=== PATIENT | male | born 1965 | race Caucasian/White ===

== ENCOUNTER → 2020-06-01 09:22 | Outpatient (BNVA) | payer MEDICAID, SELFPAY | PROVIDERS: PCP Internal Medicine Geriatric Medicine; Referring Provider Internal Medicine Geriatric Medicine; Visit Provider Orthopaedic Surgery | DX: Z47.1 Aftercare following joint replacement surgery (principal); Z96.652 Presence of left artificial knee joint | CPT/HCPCS: 99212 ==

== ENCOUNTER → 2022-01-20 12:53 | Outpatient (BNVA) | payer MEDICAID, SELFPAY | PROVIDERS: PCP Internal Medicine Geriatric Medicine; Visit Provider Surgery | DX: K42.9 Umbilical hernia without obstruction or gangrene (principal) | CPT/HCPCS: 99202 ==

== ENCOUNTER 2022-02-08 09:48 | Day surgery (SDC) | payer MEDICAID, SELFPAY ==
[2022-02-03 10:09] VITALS: BMI 38.2
--- NOTE | 2022-02-07 09:24 | HO.ANESPROP2 ---
Documented by User: Zahraa Collins NP 02/07/22 09:25 HPI - Anesthesia Eval Consult details Narrative: 56yo M for Hernia Repair Umbilical with mesh Suboxone tx PMFSH Active Problems Active Problems: All Active Problems (Updated 02/03/22 @ 10:13 by Lynne Rivera RN) Loose left total knee arthroplasty (Acute) Umbilical hernia (Acute) History of total left knee replacement (Acute) Past Medical History Medical History Anxiety and depression Hypertension Morbid obesity Primary osteoarthritis of left knee Smoker Family History Family History Father No problems noted. Mother No problems noted. Surgical History Surgical History History of total left knee replacement Social History Social History Housing Other:: Lives in [facility] Are you a primary senior resident care director to a significant other at home: No Do you presently have visiting nurse or other home services: No Patient Tobacco Use Status: Current everyday Tobacco user Tobacco use type: Cigarette Cigarettes Per Day: 2 Smoked in Last 30 Days: Yes Have you been hit, kicked, punched, or otherwise hurt by someone within the past year? If so, by whom?: No Are you DNR?: No Advance Directives: No Advance Directives Information Provided: Yes Advance Directives on File: No Poor oral hygiene: Yes (many missing teeth) Current occupational status: unemployed Current occupation: Right Handed Meds Allergies Allergy/AdvReac Type Severity Reaction Status Date / Time No Known Allergies Allergy Verified 02/03/22 10:06 [No Known Allergies*] Home Medications Medication Instructions Recorded Confirmed Last Taken Type atorvastatin 20 mg tablet 20 mg PO DAILY 01/20/22 02/03/22 Unknown History buprenorphine 8 mg-naloxone 2 mg 8 film sublingual 01/20/22 01/20/22 02/08/22 History sublingual film (Suboxone) bupropion HCl 150 mg 24 hr tablet, 150 mg PO DAILY 01/20/22 02/03/22 Unknown History extended release clonidine HCl 0.1 mg tablet 0.1 - 0.2 mg PO BID 01/20/22 01/20/22 Unknown History doxepin 10 mg capsule 10 mg PO BEDTIME 01/20/22 01/20/22 Unknown History hydroxyzine HCl 25 mg tablet 25 mg PO TID PRN anxiety 01/20/22 02/03/22 02/08/22 History ibuprofen 800 mg tablet 800 mg PO TID 01/20/22 02/03/22 Unknown History sertraline 100 mg tablet 200 mg PO BEDTIME 01/20/22 02/03/22 Unknown History Exam Exam Date and Time: February 07, [id number] Height,Weight and Vital Signs: Height 5 ft 10 in Weight 121.109 kg Assessment and Plan Assessment Anesthesia Assessment: Chart Reviewed Documented by User: Yo Shaver MD 02/08/22 16:51 PMFSH Past Medical History Medical History Anxiety and depression Hypertension Morbid obesity Primary osteoarthritis of left knee Smoker Functional capacity: independent ambulation Family History Family History Father No problems noted. Mother No problems noted. Family history of problems with anesthesia: No Surgical History Surgical History History of total left knee replacement History of Problems with Anesthesia: No Social History Social History Housing Other:: Lives in [facility] Are you a primary senior resident care director to a significant other at home: No Do you presently have visiting nurse or other home services: No Patient Tobacco Use Status: Current everyday Tobacco user Tobacco use type: Cigarette Cigarettes Per Day: 2 Smoked in Last 30 Days: Yes Have you been hit, kicked, punched, or otherwise hurt by someone within the past year? If so, by whom?: No Are you DNR?: No Advance Directives: No Advance Directives Information Provided: Yes Advance Directives on File: No Poor oral hygiene: Yes (many missing teeth) Current occupational status: unemployed Current occupation: Right Handed Meds Allergies Allergy/AdvReac Type Severity Reaction Status Date / Time No Known Allergies Allergy Verified 02/03/22 10:06 [No Known Allergies*] Home Medications Medication Instructions Recorded Confirmed Last Taken Type atorvastatin 20 mg tablet 20 mg PO DAILY 01/20/22 02/03/22 Unknown History buprenorphine 8 mg-naloxone 2 mg 8 film sublingual 01/20/22 01/20/22 02/08/22 History sublingual film (Suboxone) bupropion HCl 150 mg 24 hr tablet, 150 mg PO DAILY 01/20/22 02/03/22 Unknown History extended release clonidine HCl 0.1 mg tablet 0.1 - 0.2 mg PO BID 01/20/22 01/20/22 Unknown History doxepin 10 mg capsule 10 mg PO BEDTIME 01/20/22 01/20/22 Unknown History hydroxyzine HCl 25 mg tablet 25 mg PO TID PRN anxiety 01/20/22 02/03/22 02/08/22 History ibuprofen 800 mg tablet 800 mg PO TID 01/20/22 02/03/22 Unknown History sertraline 100 mg tablet 200 mg PO BEDTIME 01/20/22 02/03/22 Unknown History Exam Airway Mallampati Class: IV TM Dist: >3cm Denture: Upper and Lower Loose/Missing/Broken Teeth: Yes Heart: S1,S2 Lungs: b/l breath sounds Assessment and Plan Assessment Anesthesia Assessment: Anesthesia Plan Discussed Final Anesthetic Review Family History of Problems with Anesthesia: No History of Problems with Anesthesia: No NPO: Yes ASA Class: III Final Preanesthetic Review: Meds/Allgs Chart Reviewed, Consent Obtained/Reviewed and Anes Risks/Benef Reviewed Patient Risk: High Procedure Risk: Intermediate Anesthetic Plan Anesthetic Plan: GA Disposition: Standard PACU
[2022-02-08] VITALS (10 sets, daily range): BP systolic 107–130; BP diastolic 73–98; PULSE 71–80; RESP 14–22; TEMP 36–36.6; O2SAT 92–100
[2022-02-08] MEDS: Lactated Ringers 1,000 ML 100 ML IVCONT (11:24)
--- NOTE | 2022-02-08 12:46 | MHC.SHP ---
Pre-Procedural Eval Section A Date of Service: 02/08/22 The patient is an INPATIENT: No Changes since office visit: No Cold of Flu in the past 2 weeks, No New Medical Problems, No Changes in Medication and No Patient answered all questions The History & Physical has been completed within 30 days and I have reviewed it.: Yes Section B Chief Complaint: Umbilical hernia without obstruction or gangrene Allergies: Allergies Allergy/AdvReac Type Severity Reaction Status Date / Time No Known Allergies Allergy Verified 02/03/22 10:06 [No Known Allergies*] Plan I have reviewed the history and physical and performed a pertinent physical examination on my patient. No changes have occurred unless specified.
--- NOTE | 2022-02-08 13:56 | P.OP_ITS ---
Operative Note Operative Note Date of Service: 02/08/22 Narrative: Preop diagnosis: Umbilical hernia Postop diagnosis: Umbilical hernia Procedure: Repair of umbilical hernia with Ventralex mesh Surgeon: Usman Strickland MD product safety technical assistant: MAJO Byrne The patient is a 56-year-old male with a partially reducible umbilical hernia. He wanted to proceed with repair. He understood the technique of repair with mesh. He was aware of the risks, benefits, and alternatives He was brought to the operating room and placed supine under general anesthesia via endotracheal tube. The abdomen was prepped draped in the usual sterile fashion. A surgical time-out was done. The patient received cefazolin 2 g IV preoperatively . I infiltrated the planned line of incision with lidocaine 1%. I made a supra umbilical transverse curvilinear incision using blade 15. This was carried down with electrocautery through the full-thickness of the skin subcutaneous fat. I proceeded to gently lift up the umbilicus as a flap off of the rest of the fascia. I was able to visualize the hernia which consisted of fat. I the hernia contents from the umbilicus. I continued to sharply dissect the hernia contents down to the fascial edge. I divided adhesions to the fascial edge until was able to completely reduce the entire hernia. The fascial defect was fine. This was about 1.5 cm in diameter. The underside of the fascia was clear. I used a small-sized Ventralex mesh. I positioned this flat under the fascia. I secured the Prolene straps of the mesh to the fascial edge on each side with Prolene 2 sutures. I trimmed the Prolene straps flush on the fascial level. I closed the fascia with a [id number] Maxon 1 stitch. I used a Dexon 3-0 stitch to tack the umbilicus to the fascia and re-create the dimple. I closed the skin with subcuticular running Dexon 4-0 stitch. The incision was infiltrated with Marcaine 0.5% for postop analgesia. Steri-Strips and dressings were applied. The procedure was completed. The patient tolerated procedure well. There were no complication noted. Initial and final counts of sponges and instruments were correct. Estimated blood loss was about 5 cc . The patient was extubated without difficulty and transferred to recovery room with stable vital signs.
[2022-02-08] MEDS: Albuterol Sulfate (0.083%) 2.5 MG/3 ML VIAL.NEB INHALE (15:41)
--- NOTE | 2022-02-08 18:03 | PC.NURSE ---
[id number] patient sitting in recliner eating dinner meal. no complaints. tolerated meal well. await discharge to home via taxi
== END 2022-02-08 18:04 | disposition home or self-care (01) ==
PROVIDERS: PCP Internal Medicine Geriatric Medicine; Visit Provider Surgery
PROC: (CPT 49585; principal; 2022-02-08 11:30)
DX: K42.9 Umbilical hernia without obstruction or gangrene (principal); I10 Essential (primary) hypertension; E66.01 Morbid (severe) obesity due to excess calories; F41.8 Other specified anxiety disorders; Z79.899 Other long term (current) drug therapy; Z79.1 Long term (current) use of non-steroidal anti-inflammatories (NSAID); Z96.652 Presence of left artificial knee joint; F17.210 Nicotine dependence, cigarettes, uncomplicated
CPT/HCPCS: 49585; 94640; C1781; J0690; J1100; J1170; J2250; J2405; J3010

== ENCOUNTER 2023-06-07 09:25 | Outpatient (REF) | payer MEDICAID, SELFPAY ==
[2023-06-07 11:11] LABS: MANUAL DIFF FLAG NO
[2023-06-07 11:37] LABS: Basophils Percent Auto 0.3 % (0-2); Eosinophils Absolute Auto 0.4 X10*3/uL (0.0-0.4); Eosinophils Percent Auto 4.1 % (0-4); Hematocrit 45.1 % (42.0-52.0); Hemoglobin 14.5 g/dl (14.0-18.0); Imm Gran Abs Auto 0.04 X10*3/uL (0.00-0.03); Imm Gran Pct Auto 0.4 % (0.0-0.4); Lymphocytes Percent Auto 19.7 % (20-40); Mean Corpuscular HGB Conc 32.2 g/dl (31.0-36.0); Mean Corpuscular Hemoglobin 29.5 pg (27.0-33.0); Mean Corpuscular Volume 91.7 fL (80.0-98.0); Mean Platelet Volume 11.1 fL (9.4-12.4); Monocytes Absolute Auto 0.7 X10*3/uL (0.1-1.2); Monocytes Percent Auto 7.1 % (2-11); Neutrophils Absolute Auto 6.8 x10*3/uL (2.0-8.3); Neutrophils Percent Auto 68.4 % (45-73); Platelet Count 225 X10*3/uL (160-400); Red Blood Count 4.92 X10*6/uL (4.60-5.80); Red Cell Distribution Width 11.9 % (11.0-16.0)
[2023-06-07 11:45] LABS: Anion Gap 12 (12-20); Blood Urea Nitrogen 20 mg/dL (9-16); Carbon Dioxide 31 mmol/L (22-29); Chloride 103 mmol/L (96-108); Estimated Glomerular Filt Rate > 60; Glucose Random 98 mg/dL (60-115); Potassium 4.5 mmol/L (3.3-5.1); Sodium 141 mmol/L (135-145)
== END 2023-06-07 09:26 | disposition home or self-care (01) ==
LOC: HO.HHCL 09:25
PROVIDERS: Visit Provider Internal Medicine Geriatric Medicine
DX: B18.2 Chronic viral hepatitis C (principal); F32.A Depression, unspecified; Z72.0 Tobacco use
CPT/HCPCS: 36415; 80048; 85025

== ENCOUNTER 2023-12-15 10:28 | Outpatient (REF) | payer MEDICAID, SELFPAY ==
--- NOTE | ~2023-12-15 | XR_ITS ---
EXAMINATION: XR KNEE, RIGHT CLINICAL INFORMATION: Chronic pain of right knee COMPARISON: Standing x-rays of both knees September 2019 TECHNIQUE: Four views of the right knee. FINDINGS: Small joint effusion. Bone and joints otherwise unremarkable. XR/XR knee RT 4V IMPRESSION: Small joint effusion.
== END 2023-12-15 10:29 | disposition home or self-care (01) ==
LOC: HO.HHCX 10:28
PROVIDERS: Visit Provider Internal Medicine Geriatric Medicine
DX: M25.561 Pain in right knee (principal); G89.29 Other chronic pain
CPT/HCPCS: 73564

== ENCOUNTER 2024-03-20 09:52 | Outpatient (REF) | payer MEDICAID, SELFPAY ==
[2024-03-20 11:36] LABS: MANUAL DIFF FLAG NO
[2024-03-20 11:52] LABS: Basophils Percent Auto 0.3 % (0-2); Eosinophils Absolute Auto 0.4 X10*3/uL (0.0-0.4); Hematocrit 44.6 % (42.0-52.0); Hemoglobin 14.4 g/dl (14.0-18.0); Imm Gran Abs Auto 0.03 X10*3/uL (0.00-0.03); Imm Gran Pct Auto 0.3 % (0.0-0.4); Lymphocytes Absolute Auto 2.3 X10*3/uL (1.2-4.9); Lymphocytes Percent Auto 22.5 % (20-40); Mean Corpuscular HGB Conc 32.3 g/dl (31.0-36.0); Mean Corpuscular Hemoglobin 29.3 pg (27.0-33.0); Mean Corpuscular Volume 90.7 fL (80.0-98.0); Mean Platelet Volume 10.6 fL (9.4-12.4); Monocytes Absolute Auto 0.8 X10*3/uL (0.1-1.2); Monocytes Percent Auto 7.4 % (2-11); Neutrophils Absolute Auto 6.7 x10*3/uL (2.0-8.3); Neutrophils Percent Auto 65.5 % (45-73); Platelet Count 232 X10*3/uL (160-400); Red Blood Count 4.92 X10*6/uL (4.60-5.80); Red Cell Distribution Width 11.9 % (11.0-16.0); White Blood Count 10.2 X10*3/uL (4.8-10.8)
[2024-03-20 12:02] LABS: Estimated Average Glucose 108 mg/dL; Hemoglobin A1c % 5.4 % (<6.0)
[2024-03-20 12:57] LABS: Alanine Aminotransferase 28 U/L (0-40); Albumin Level 4.5 g/dL (3.5-5.0); Alkaline Phosphatase 74 U/L (39-117); Anion Gap 12 (12-20); Aspartate Amino Transferase 35 U/L (5-37); Bilirubin Direct 0.1 mg/dL (0.0-0.5); Bilirubin Total 0.4 mg/dL (0.0-1.0); Blood Urea Nitrogen 23 mg/dL (9-16); Calcium 9.4 mg/dL (8.4-10.2); Carbon Dioxide 30 mmol/L (22-29); Chloride 101 mmol/L (96-108); Estimated Glomerular Filt Rate > 60; Glucose Random 111 mg/dL (60-115); Potassium 4.4 mmol/L (3.3-5.1); Sodium 139 mmol/L (135-145); Total Protein 8.3 g/dL (6.5-8.0)
== END 2024-03-20 09:53 | disposition home or self-care (01) ==
LOC: HO.HHCL 09:52
PROVIDERS: Family Medicine; Visit Provider Internal Medicine Geriatric Medicine
DX: Z13.1 Encounter for screening for diabetes mellitus (principal); F11.20 Opioid dependence, uncomplicated; Z79.1 Long term (current) use of non-steroidal anti-inflammatories (NSAID)
CPT/HCPCS: 36415; 80053; 80076; 82248; 83036; 85025

== ENCOUNTER 2024-04-22 09:50 | Outpatient (AMB) | payer MEDICAID, SELFPAY ==
--- NOTE | 2024-04-22 10:22 | A.OFFVIS_ITS ---
Vital Signs 04/22/24 10:32 Height 5 ft 10 in Weight 258 lb BMI 37.0 Handedness Left Intake Visit Reasons: New Pt - Right knee Pain Intake Note: Edmund is a 58 year old male who presents today as a new patient for a evaluation of his right knee pain. No hx of injury. Hx of left TKA about 5 years ago. Patient reports ongoing pain for about 6 months. He states that he might have liquid in his knee. Patient mentions that he uses a knee sleeve at night and to be around the house which gives him mild relief. Patient has tried and failed 3 + months of NSAIDs, bupropion and hydroxyzine for his knee pain. [employer]: [employer] Present (Rebecca Blackmon ([id number])) Allergies No Known Allergies [No Known Allergies*] Allergy (Verified 04/22/24 10:29) Medication List - Last Reconciled 04/22/24 by Diamond Norris PA-C atorvastatin 20 mg PO DAILY buprenorphine-naloxone 8-2 mg (Suboxone) 8 film sublingual bupropion HCl XL 300 mg PO QAM doxepin 25 mg PO BEDTIME hydroxyzine HCl 25 mg PO TID PRN ibuprofen 800 mg PO TID sertraline 200 mg PO BEDTIME HPI HPI New Pt - Right knee Pain: Details: 58-year-old male who presents to the office today for an evaluation of right knee pain for about 6 months. He has not had any knee injury. He states he has pain at the medial aspect of his knee that is aggravated with stairs use and ambulation. He also believes that he may have liquid in his knee. He uses a knee sleeve at night and when moving around the house with mild relief. He has tried 3+ months of NSAIDS, bupropion and hydroxyzine with no relief. He has a history of left TKA about 5 years ago. He does not have a history of diabetes. [facility] Medical History Anxiety and depression Hypertension Morbid obesity Primary osteoarthritis of left knee Smoker Surgical History History of total left knee replacement History of umbilical hernia repair Family History Father No problems noted. Mother No problems noted. Social History (Updated 04/22/24 @ 10:32 by Maira D Marie) Housing Other:: Lives in [facility] Are you a primary transitional care nurse to a significant other at home: No Do you presently have visiting nurse or other home services: No Alcohol intake: never Patient Tobacco Use Status: Current everyday Tobacco user Tobacco use type: Cigarette Cigarettes Per Day: 2 Current occupational status: disabled Current occupation: left hand dominant Review of Systems Const All systems reviewed & are unremarkable except as noted in HPI and below Physical Exam Vital Signs: BMI result Body Mass Index 37.0 Const General: cooperative, healthy appearing, comfortable, no acute distress, well developed and alert Orientation/consciousness: patient oriented x3 HEENT Head: Yes normal to inspection, Yes normocephalic and Yes atraumatic Eyes General: appearance normal, both eyes and all related structures Resp Effort & Inspection: normal respiratory effort and able to speak in complete sentences Cardio Rate: regular rate Peripheral pulses: Peripheral pulses 2+ throughout GI Palpation (GI): Soft to palpation Skin Lesions: no lesions Rashes: no rashes Neuro General: patient oriented x3 Extrem Other: Right knee: Skin intact, no erythema or joint effusion. Tenderness along the medial joint line. Full ROM with crepitus. Negative Chin?s. No ligamentous laxity. NVI. Office Procedures Joint Injection/Aspiration Joint Injection/Aspiration Primary Site: right knee Prep: site was prepped using aseptic technique, ethochloride spray was applied and injection warnings given Injected: 80 mg of, DepoMedrol, with 8 mL of, 1% plain lidocaine and in the joint Approach Used: anterolateral Procedure: The patient tolerated the procedure well and there was some relief with the local anesthesia Coding 17954 - Glenohumeral/Tronchanteric Bursa/Intraarticular Procedure code (CPT) selection complete Results Reviewed Results Reviewed: xrays of the right knee obtained on 12/15/23 significant for mild right knee oa Assessment & Plan Assessment & Plan (1) Osteoarthritis of right knee: Code(s): M17.11 - Unilateral primary osteoarthritis, right knee Category: Medical Plan We discussed options today, which include steroid injection. The patient did consent to move forward with the injection, which was tolerated well. I recommended rest, ice, and elevation and OTC anti-inflammatories as needed for discomfort. He was also given a course of physical therapy in the office today. If symptoms persist or worsen over the next 6-8 weeks, patient will contact the office, otherwise follow-up as needed. Orders: Orders PT Evaluation and Treatment Today M17.11 - Unilateral primary osteoarthritis, right knee Patient Instructions: Scribed for Diamond Norris PA-C, by Chico Zazueta medical surgery nurse, on 04/22/2024 at 10:45 AM EST.? I, Diamond Norris PA-C, have personally reviewed and agree with the information entered by the scribe. Coding Level of Care Code Est Pt Level 3 (86017) Complex EM visit Add On G2211 Diagnoses Osteoarthritis of right knee M17.11 CPT Codes Coding - Joint 7: 90877 - Glenohumeral/Tronchanteric Bursa/Intraarticular ([id number])
[2024-04-22 10:32] VITALS: BMI 37.0
== END 2024-04-22 11:15 | disposition home or self-care (01) ==
PROVIDERS: PCP Internal Medicine Geriatric Medicine; Visit Provider Physician Assistant
DX: M17.11 Unilateral primary osteoarthritis, right knee (principal)
CPT/HCPCS: 20610; 99213

== ENCOUNTER → 2024-04-22 09:50 | Outpatient (BNVA) | payer MEDICAID, SELFPAY | PROVIDERS: PCP Internal Medicine Geriatric Medicine; Visit Provider Physician Assistant | DX: M17.11 Unilateral primary osteoarthritis, right knee (principal); Z96.652 Presence of left artificial knee joint | CPT/HCPCS: 20610; 99212; J1010 ==

== ENCOUNTER 2024-10-09 08:38 | Outpatient (REF) | payer MEDICAID, SELFPAY ==
--- OUTSIDE RECORDS SUMMARY | 2024-10-09 09:11 | XMS_ITS | Encounter Summary ---
Author Organization [employer] Address [address] [place] [address] Care Team Providers Care Electrician'S Helper Name Role Phone Name, Gerry ANDERSON Primary Care Provider [phone] Encounter Details Date Type Department Care Team (Latest Contact Info) Description 09/25/2024 Travel Social History Tobacco Use Types Packs/Day Years Used Date Smoking Tobacco: Every Day Cigarettes Smokeless Tobacco: Never Alcohol Use Standard Drinks/Week Comments Never 0 (1 standard drink = 0.6 oz pur e alcohol) Alcohol Answer Date Recorded Frequency of Alcohol Consumption Not on file 03/20/2024 Average Number of Drinks Not on file 024 Frequency of Binge Drinking Not on file 03/01 Score 0 03/20/2024 Depression Answer Date Recorded Patient Health Questionnaire-9 Score 0 03/20/2024 Patient Health Questionnaire-9 Score 0 03/20/2024 Last PHQ-9: Questionnaire Data Not on file 0 03/20/2024 Housing Stability Answer Date Recorded What is your housing situation today? I do not have housing (Staying with others, in a hotel, in a intermediate, living outside on the street, on a beach, in a car, or in a park 03/20/[address] you li ve. Do you have problems with any of the following? None of the above 03/20/2024 Food Insecurity Answer Date Recorded Within the past 12 months, y ou worried that your food would run out before you got money to buy more: Never True 03/20/2024 Within the past 12 months,th e food you bought just didn't last and you didn't have enough money to get more: Never True Transportation Answer Date Recorded In the past 12 months, has l ack of transportation kept you from medical appts, meetings, work or from getting things needed for daily living? No 03/20/2024 Utilities Answer Date Recorded In the past 12 months, has t he electric, gas, oil or water company threatened to shut off services in your home? No 03/20/2024 Depression Answer Date Recorded Patient Health Questionnaire-2 Score 0 03/20/2024 Internet Access Answer Date Recorded Internet Access Q1 No 04/01/2024 Internet Access Q2 I do not want or need it 08/2023 Sex and Gender Information Value Date Recorded Sex Assigned at Male 05/30/2022 10:31 AM EDT Legal Sex Male 10:31 AM EDT Gender Identity Male 05/30/2022 10:31 AM EDT Sexual Orientation Straight 05/30/2022 10 :31 AM EDT documented as of this encounter Plan of Treatment Upcoming Encounters Date Type Department Care Team (Late st Contact Info) Description 10/09/2024 10:30 AM EDT Office Visit [address] [id number] Ruth Barrios MD [address] [place] [id number] 10/23/2024 9:00 AM EDT Office Visit [address] [address] Ruth Barrios MD [address] [place] [id number] 01/15/2025 11:15 AM EDT Office Visit [address] [address] Gerry Salter MD [address] [place] [id number] documented as of this encounter Goals Goal Patient Goal Type Associated Problems Recent Progress Patient-Stated? Author Maintaining remission stage from opioid use disorder General On track(09/25/19 25 9:32 AM EST) Yes Ruth Barrios MD Quit using tobacco (cigarettes, smokeless, etc) Tobacco Use No change( 025 9:34 AM EST) No Ruth Barrios MD Note: 2 cigs per day on 09/25/24 documented as of this encounter Visit Diagnoses Not on filedocumented in this encounter Additional Health Concerns Assessment Noted Time PHQ-9 Depression Total Score: 0 03/20/20 24 9:07 AM EDT documented as of this encounter Care Teams Electrician[employer] Helper Relationship Specialty Start Date End Date Name, MD [address] [place] [address] PCP - General Family Medicine 02/16/17 documented as of this encounter
--- OUTSIDE RECORDS SUMMARY | 2024-10-09 09:11 | XMS_ITS | Encounter Summary ---
Author Organization [employer] Address [address] [facility] 7t [place] [address] Care Team Providers Care Medical Record Retrieval Specialist Name Role Phone Name, Gerry ANDERSON Primary Care Provider [phone] Reason for Visit * Reason Comments OBAT RV Encounter Details Date Type Department Care Team (Latest Contact Info) Description 09/25/2024 9:15 AM EST Office Visit [facility] MEDICINE [address], [place] [phone] Ruth Barrios MD [address] [place], [place] [phone] Uncomplicated opioid dependence (CMS/HCC) (Primary Dx); Tobacco use Social History Tobacco Use Types Packs/Day Years [...] with others, in a hotel, in a senior living, living outside on the street, on a [...] the past 12 months, has t he [employer], gas, oil or water company threatened to [...] AM EDT documented as of this encounter Progress Notes * Ruth Barrios MD - 09/25/2024 9:15 AM EST Images from the original note were not included. Subjective Patient ID: Edmund Florence is a 59 y.o. male who presents for OBAT RV. HPI Patient is on current Suboxone dose of 24/6 mg (increased 01/27/24) on a 2 week schedule, 4 week Rx.Pt has been in the program for 7 years, 1 months. Induction date: 08/23/17. Patient is connected to [facility] and [facility] for behavioral health service. SATELLITE INSTALLATION TECHNICIAN reviewed by provider. Tobaccco: smoking 2 cigarettes/day 09/25/24 (5-7 cigs per day 1 year ago) LFTs: due 03/20/25 PCP: Dr. Salter, last seen 06/21/24, scheduled 10/08/24. Last visit: 09/11/24 Utox: pos bup Edmund seen today for follow up for opioid use disorder. Reports doing well overall. He is happy because a housemate who would leave the bathroom dirty has left and he feels calmer at home. [facility] would not let him seed cone picker Rx ahead of appointment, unclear why. Offered again for pt to use [facility] pharmacy, will confirm what pt wants to do next visit. Very grateful to be in recovery and for the support of [facility]. Today: 09/25/24 Utox: pos bup Edmund celebrated his birthday last week quietly. Spoke with his family. He expresses frustration with his younger sister who lives in [place], because their conversation became mostly about her when she called him for his birthday. Edmund would like to use [facility] pharmacy for buprenorphine script, starting 10/09/24. Plan: Suboxone dosing schedule of 24/6 mg daily and management of side effects reviewed. Recovery support, harm reduction (including Narcan), and behavioral health attendance reviewed. Appointment for 2 weeks given. Patient expressed understanding and agreement with continuing plan of care. This information has been disclosed to you from records protected by federal confidentiality rules (42 CFR Part 2). The federal rules prohibit you from making any further disclosure of information inthis record that identifies a patient as having or having had a substance use disorder either directly, by reference to publicly available information, or through verification of such identification by another person unless further disclosure is expressly permitted by the written consent of the individual whose information is being disclosed or as otherwise permitted by (see2.3.1). The federal rules restrict any use of the information to investigate or prosecute with regard to a crime any patient with a substance use disorder, except as provided at 2.12??(5) and 2.65. Goals Today General Maintaining remission stage from opioid use disorder (pt-stated) On track Tobacco Use Quit using tobacco (cigarettes, smokeless, etc) No change 2 cigs per day on 09/25/24 Review of Systems Constitutional: Negative for activity change, appetite change, chills, fatigue and fever. Skin: Negative for wound. Objective Physical Exam Constitutional: General: He is not in acute distress. Appearance: Normal appearance. Pulmonary: Effort: Pulmonary effort is normal. Neurological: Mental Status: He is alert. Psychiatric: Mood and Affect: Mood normal. Behavior: Behavior normal. Office Visit on 09/25/2024 Component Date Value Ref Range Status THC 09/25/2024 Negative Final Cocaine Screen, Urine 09/25/2024 Negative Final Opiate Screen, Urine 09/25/2024 Negative Final Methamphetamine Screen Urine 09/25/2024 Negative Final Amphetamine Screen, Urine 09/25/2024 Negative Final Benzodiazepines Screen, Urine 09/25/2024 Negative Final Barbiturate Screen, Urine 09/25/2024 Negative Final Methadone Screen, Urine 09/25/2024 Negative Final Buprenophine Screen, Urine 09/25/2024 Positive Final TCA, Urine 09/25/2024 Negative Final MDMA Urine 09/25/2024 Negative ng/mL Final Oxycodone Screen, Urine 09/25/2024 Negative Final Phencyclidine (PCP), Urine 09/25/2024 Negative Final Propoxyphene, Urine 09/25/2024 Negative Final Fentanyl, Urine 09/25/2024 Negative Final Assessment/Plan Problem List Items Addressed This Visit Opioid dependence ([facility]) - Primary -long-term remission stage of recovery -Recurrence after 1 year (December 2017 - January 2019) of maintenance stage due to postop (TKR on 04/02/19)pain management -OD on 04/22/20. -Detox and CSS at [facility] in Feb 2020, May 2020 -Has recovery counselor and is in residential program currently, since May 2020 -Overdose risk: intermediate. Risk factors - decreased tolerance; history of overdose (but not recent) -Co-prescription of high-risk medications: none -Discussed about the importance of harm reduction and OD prevention -Continue current recovery effort and support Relevant Orders POCT GABI-14 Urine Drug Screen (Completed) Tobacco use - making a progress towards his goal - nicotine patch and lozenge documented in this encounter Miscellaneous Notes * Significant Event - Ruth Barrios MD - 09/25/2024 9:36 AM EST Former AUD * Assessment & Plan Note - Ruth Barrios MD - 09/24/2024 9:54 PM ESTAssociated Problem(s): Tobacco use - making a progress towards his goal - nicotine patch and lozenge * Assessment & Plan Note - Ruth Barrios MD - 09/24/2024 9:53 PM ESTAssociated Problem(s): Opioid dependence (CMS/HCC) -long-term remission stage of recovery -Recurrence after 1 year (December 2017 - January 2019) of maintenance stage due to postop (TKR on 04/02/19)pain management -OD on 04/22/20. -Detox and CSS at [facility] in Feb 2020, May 2020 -Has recovery counselor and is in residential program currently, since May 2020 -Overdose risk: intermediate. Risk factors - decreased tolerance; history of overdose (but not recent) -Co-prescription of high-risk medications: none -Discussed about the importance of harm reduction and OD prevention -Continue current recovery effort and support documented in this encounter Plan of Treatment Upcoming Encounters Date Type Department Care Team (Late st Contact Info) Description 10/09/2024 10:30 AM EDT Office Visit [address] [address] Ruth Barrios MD [address] [place] [address] 10/23/2024 9:00 AM EDT Office Visit [address] [address] Ruth Barrios MD [address] [place] [address] 01/15/2025 11:15 AM EDT Office Visit [address] [address] Name, MD Gerry [address] [place] [address] documented as of this encounter Goals Goal Patient Goal Type Associated Problems Recent Progress Patient-Stated? Author Maintaining remission stage from opioid use disorder General On track(09/25/19 9:32 AM EST) Yes Ruth Barrios MD Quit using tobacco (cigarettes, smokeless, etc) Tobacco Use No change( 025 9:34 AM EST) No Ruth Barrios MD Note: 2 cigs per day on 09/25/24 documented as of this encounter Procedures Procedure Name Priority Date/Time Associated Diagnosis Comments POCT GABI-14 URINE DRUG SCREEN Routine 09/25/2024 9:21 AM EST Uncomplicated opioid dependence (CMS/HCC) documented in this encounter Results * POCT GABI-14 Urine Drug Screen (09/25/2024 9:21 AM EST) THC Negative Cocaine Screen, Urine Negative Opiate Screen, Urine Negative Methamphetamine Screen Urine Negative Amphetamine Screen, Urine Negative Benzodiazepines Screen, Urine Negative Barbiturate Screen, Urine Negative Methadone Screen, Urine Negative Buprenophine Screen, Urine Positive TCA, Urine Negative MDMA Urine Negative ng/mL Oxycodone Screen, Urine Negative Phencyclidine (PCP), Urine Negative Propoxyphene, Urine Negative Fentanyl, Urine Negative Urine Urine specimen obtained by clean catch procedure / Unknown 09/25/2024 9:21 AM EST Ruth Barrios MD POINT OF CARE TEST ENTER/EDIT OR DERABLES Final Result documented in this encounter Visit Diagnoses Diagnosis Uncomplicated opioid dependence (CMS/HCC)- Primary Tobacco use Uncomplicated opioid dependence (CMS/HCC)- Primary documented in this encounter Additional Health Concerns Assessment Noted Time PHQ-9 Depression Total Score: 0 03/20/20 9:07 AM EDT documented as of this encounter Care Teams Medical Record Retrieval Specialist Relationship Specialty Start Date End Date Name, MD Gerry [address] [place] [address] PCP - General Family Medicine 02/16/17 documented as of this encounter
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
--- OUTSIDE RECORDS SUMMARY | 2024-10-09 09:11 | XMS_ITS | Encounter Summary ---
Author Organization [employer] Address [address] [facility] 7t [place] [address] Care Team Providers Care Deputy Grand Jury Name Role Phone Name, Gerry ANDERSON Primary Care Provider [phone] Reason for Visit * Reason Onset Date Comments Med Refill 10/02/2024 Encounter Details Date Type Department Care Team ([facility] st Contact Info) Description 10/02/[address] [facility] MEDICINE [address] [place] [address] Arun Ledesma, RN [address] [place] [address] Uncomplicated opioid dependence (CMS/HCC) Social History Tobacco Use Types Packs/Day Years [...] the past 12 months, has t he [employer], gas, oil or water company threatened to [...] Description 10/09/2024 10:30 AM EDT Office Visit [address] [address] Ruth Barrios MD [address] [place] [address] 10/23/2024 9:00 AM EDT Office Visit [address] [address] Ruth Barrios MD [address] [place] [address] 01/15/2025 11:15 AM EDT Office Visit [address] [address] Name, MD Gerry [address] [place] [address] documented as of this encounter Goals Goal [...] documented as of this encounter Visit Diagnoses Diagnosis Uncomplicated opioid dependence (CMS/HCC) Uncomplicated opioid dependence (CMS/HCC)- Primary documented in this encounter Additional Health Concerns Assessment Noted Time PHQ-9 Depression Total Score: 0 03/20/20 24 9:07 AM EDT documented as of this encounter Care Teams Deputy Grand Jury Relationship Specialty Start Date End Date Name, MD Gerry [address] [place] [address] PCP - General Family Medicine 02/16/17 documented as of this encounter
--- OUTSIDE RECORDS SUMMARY | 2024-10-09 09:11 | XMS_ITS | Encounter Summary ---
Author Organization [employer] Address [address] [facility] 7t [place] [address] Care Team Providers Care Hat Forming Machine Feeder Name Role Phone Name, Gerry ANDERSON Primary Care Provider [phone] Reason for Visit * Reason Comments Follow-up Encounter Details Date Type Department Care Team ([facility] st Contact Info) Description 10/08/2024 11:30 AM EDT Office Visit [facility] MEDICINE [address] [place] [address] Name, MD Gerry [address] [place], [place] [phone] Chronic pain of left knee (Primary Dx); Encounter for monitoring chronic NSAID therapy; Depressive disorder Social History Tobacco Use Types Packs/Day Years Used Date Smoking Tobacco: Every Day Cigarettes Smokeless Tobacco: Never Tobacco Cessation:Ready to Q uit: Not Asked; Counseling Given: Not Answered Alcohol Use Standard Drinks/Week Comments Never 0 [...] with others, in a hotel, in a penitentiary, living outside on the street, on a [...] AM EDT documented as of this encounter Last Filed Vital Signs Vital Sign Reading Time Taken Comments Blood Pressure 142/97 10/08/2024 11:28 AM EDT Pulse 89 10/08/2024 11:28 AM EDT Temperature 35.7 ??C (96.2 ??F) 10/08/2024 11:28 AM E DT Respiratory Rate 18 10/08/2024 11:28 AM EDT Oxygen Saturation 96% 10/08/2024 11:28 AM EDT Inhaled Oxygen Concentration - - Weight 114 kg (252 lb 3.2 oz) 10/08/2024 11:28 A M EDT Height 177.8 cm (5' 10 ) 10/08/2024 11:28 AM EDT Body Mass Index 36.19 10/08/2024 11:28 AM EDT documented in this encounter Progress Notes * Gerry Salter, - 10/08/2024 11:30 AM EDT Subjective Patient ID: Edmund Florence is a 59 y.o. male who presents for Follow-up. Patient comes for a follow-up visit. He is doing well. He continues to live in a sober house in [place]. He is doing well on Suboxone. He is in good spirits. Chronic knee pain is well-controlled on Motrin. Patient is exercising and trying to lose weight. He denies any GI side effects to his current dose of Motrin. Today he requested refill for most of his medications including his antidepressants and antianxiety medications. He tells me he received the Pneumovax at his facility in [place]. Review of Systems Constitutional: Negative for chills, fatigue and fever. HENT: Negative for sore throat. Respiratory: Negative for cough, chest tightness and shortness of breath. Cardiovascular: Negative for chest pain, palpitations and leg swelling. Gastrointestinal: Negative for abdominal pain and blood in stool. Visit Vitals BP (!) 142/97 (BP Location: Left arm, Patient Position: Sitting, BP Cuff Size: Large adult) Pulse 89 Temp 96.2 ??F (35.7 ??C) (Temporal) Resp 18 Ht 5' 10 (1.778 m) Wt 252 lb 3.2 oz (114 kg) SpO2 96% BMI 36.19 kg/m?? Smoking Status Every Day BSA 2.37 m?? Objective Physical Exam Constitutional: Appearance: Normal appearance. Cardiovascular: Rate and Rhythm: Normal rate and regular rhythm. Heart sounds: No murmur heard. Pulmonary: Effort: Pulmonary effort is normal. No respiratory distress. Breath sounds: No wheezing, rhonchi or rales. Abdominal: Palpations: Abdomen is soft. Tenderness: There is no abdominal tenderness. Musculoskeletal: Right lower leg: No edema. Left lower leg: No edema. Neurological: Mental Status: He is alert. Assessment/Plan Diagnoses and all orders for this visit: Chronic pain of left knee Comments: I refilled his Motrin and he is asked to use it as needed with meals. Daily PPI for prevention of GI side effects Check blood work listed below Orders: - ibuprofen 800 MG tablet; TAKE 1 TABLET BY MOUTH THREE TIMES DAILY WITH FOOD Encounter for monitoring chronic NSAID therapy - CBC auto differential; Future - Comprehensive Metabolic Panel; Future Depressive disorder Comments: I refilled his antidepressants and antianxiety medications as requested Orders: - hydrOXYzine HCl (Atarax) 25 MG tablet; take 1 tablet by oral route 3 times every day as needed asneeded for anxiety - sertraline (Zoloft) 100 MG tablet; Take 2 tablets (200 mg) by mouth Once per day. - buPROPion XL (Wellbutrin XL) 300 MG 24 hr tablet; TAKE 1 TABLET BY MOUTH EVERY MORNING KRUPA 1 CADA MANANA (DEPRESION/DEJAR DE FUMAR) Other orders - omeprazole (PriLOSEC) [address] capsule; take 1 capsule by oral route every day 30 minutes to 1 hour before a meal documented in this encounter Plan of Treatment Upcoming Encounters Date Type Department Care Team (Late st Contact Info) Description 10/09/2024 10:30 AM EDT Office Visit [facility] MEDICINE [address] [place] [address] Ruth Barrios MD [address] [place] [address] 10/23/2024 9:00 AM EDT Office Visit [address] [address] Ruth Barrios MD [address] [place] [address] 01/15/2025 11:15 AM EDT Office Visit [address] [address] Geryr Salter MD [address] [place] [address] Scheduled Orders Name Type Priority Associated Diagnoses Orde r Schedule CBC auto differential Lab Routine Encounter for monitoring chronic NSAID therapy Expected: 10/08/2024 (Approximate), Expires: 10/08/2025 Comprehensive Metabolic Panel Lab Routine Encounter for monitoring chronic NSAID therapy Expected: 10/08/2024 (Approximate), Expires: 10/08/2025 documented as of this encounter Goals Goal [...] as of this encounter Visit Diagnoses Diagnosis Chronic pain of left knee- Primary Encounter for monitoring chronic NSAID therapy Depressive disorder Depressive disorder, not elsewhere classified Uncomplicated opioid dependence (CMS/[facility])- Primary documented in this encounter Additional Health Concerns Assessment Noted Time PHQ-9 Depression Total Score: 0 03/20/20 9:07 AM EDT documented as of this encounter Care Teams Hat Forming Machine Feeder Relationship Specialty Start Date End Date Name, MD Gerry [address] [place] [address] PCP - General Family Medicine 02/16/17 documented as of this encounter
--- OUTSIDE RECORDS SUMMARY | 2024-10-09 09:11 | XMS_ITS | Clinical Summary ---
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 http://education.10-[employer] Media.Toywheel/faq/GRN607 (This link is being provided for informational/ educational purposes only.) The performance of this assay has not been clinically validated in patients less than 2 years old. Blood Venous blood specimen / Unknown 11/02/2022 9:00 AM EDT 11/02/2022 9:01 AM EDT Narrative [facility] - 11/03/2022 3:29 PM EDT FASTING:YES FASTING: YES us Ruth Barrios MD LAB BLOOD ORDERABLES Final Resul t Performing Organization Address City/[facility]/ZIP Co de Phone Number FRANCISCO [address], [place] [address] [employer] [facility] [address] [place] [address] * (ABNORMAL) Lipid Panel, Standard (08/31/2022 11:38 AM EST) Cholesterol, Total 181 <200 mg/dL [employer] [facility] HDL Cholesterol 39(L) > OR = 40 mg/dL [employer] [facility] Triglycerides 108 <150 mg/dL [employer] [facility] LDL Cholesterol 120(H) mg/dL (calc) [employer] [facility] Comment: Reference range: <100 Desirable range <100 mg/dL for primary prevention; ?? <70 mg/dL for patients with CHD or diabetic patients with > or = 2 CHD risk factors. LDL-C is now calculated using the Antonino calculation, which is a validated novel method providing better accuracy than the Friedewald equation in the estimation of LDL-C. Braeden SCHAFER et al. SAPPHIRE. 2013;310(19): 1585-7254 (http://education.Olocity/faq/FSB480) Chol/HDLC Ratio 4.6 <5.0 (calc) [employer] [facility] Non-HDL Cholesterol 142(H) <130 mg/dL (calc) [employer] [facility] Comment: For patients with diabetes plus 1 major ASCVD risk factor, treating to a non-HDL-C goal of <100 mg/dL (LDL-C of <70 mg/dL) is considered a therapeutic option. Blood Venous blood specimen / Unknown 08/31/2022 11:38 AM EST 08/31/2022 11:39 AM EST Narrative [facility] - 09/01/2022 1:33 AM EST FASTING:YES FASTING: YES Gerry Salter MD LAB BLOOD ORDERABLES Final Resul t Performing Organization Address City/[facility]/ZIP Co de Phone Number FRANCISCO [address], [place] [address] [employer] [place] [facility] [address] [facility], ([address]) [place] [address] from Last 3 Months or Most Recently Relevant to Health Maintenance Insurance C3 Care Teams Nicking Machine Operator Relationship Specialty Start Date End Date Name, MD Gerry [address] [place] [id number] PCP - General Family Medicine 02/16/17
--- OUTSIDE RECORDS SUMMARY | 2024-10-09 09:11 | XMS_ITS | Encounter Summary ---
Author Organization [employer] Address [address] [place] [address] Care Team Providers Care Veneer Taping Machine Offbearer Name Role Phone Name, Gerry ANDERSON Primary Care Provider [phone] Encounter Details Date Type Department Care Team (Latest Contact Info) Description 09/11/2024 Travel Social History Tobacco Use Types Packs/Day [...] with others, in a hotel, in a longterm, living outside on the street, on a [...] Description 10/09/2024 10:30 AM EDT Office Visit [facility] [address] [place] [phone] Ruth Barrios MD [address] [place] [phone] 10/23/2024 9:00 AM EDT Office Visit [address] [address] Ruth Barrios MD [address] [place] [phone] 01/15/2025 11:15 AM EDT Office Visit [address] [address] Gerry Salter MD [address] [place] [phone] documented as of this encounter Visit Diagnoses Not on filedocumented in this encounter Additional Health Concerns Assessment Noted Time PHQ-9 Depression Total Score: 0 03/20/20 24 9:07 AM EDT documented as of this encounter Care Teams Veneer Taping Machine Offbearer Relationship Specialty Start Date End Date Gerry Salter MD [address] [place] [phone] PCP - General Family Medicine 02/16/17 documented as of this encounter
--- OUTSIDE RECORDS SUMMARY | 2024-10-09 09:14 | XMS_ITS | Encounter Summary ---
Author Organization [employer] Address [address] [facility] [address] [place] [address] Care Team Providers Care Software Configuration Manager Name Role Phone Name, Gerry ANDERSON Primary Care Provider [phone] Encounter Details Date Type Department Care Team (Late st Contact Info) Description 02/02/2024 Orders Only [facility] [address] [place], [place] [phone] Ruth Barrios MD [address] [place], [place] [phone] Social History Tobacco Use Types Packs/Day Years Used Date Smoking Tobacco: Every Day Cigarettes Smokeless Tobacco: Never Alcohol Use Standard Drinks/Week Comments Never 0 (1 standard drink = 0.6 oz pur e alcohol) Depression Answer Date Recorded Patient Health Questionnaire-9 Score 0 01/19/2023 Housing Stability Answer Date Recorded What is your housing situation today? I do not have housing (Staying with others, in a hotel, in a fpc, living outside on the street, on a beach, in a car, or in a park 05/09/[address] you li ve. Do you have problems with any of the following? None of the above 05/09/2023 Food Insecurity Answer Date Recorded Within the past 12 months, y ou worried that your food would run out before you got money to buy more: Never True 05/17/2023 Within the past 12 months,th e food you bought just didn't last and you didn't have enough money to get more: Never True Transportation Answer Date Recorded In the past 12 months, has l ack of transportation kept you from medical appts, meetings, work or from getting things needed for daily living? No 05/17/2023 Utilities Answer Date Recorded In the past 12 months, has t he electric, gas, oil or water company threatened to shut off services in your home? No 05/17/2023 Depression Answer Date Recorded Patient Health Questionnaire-2 Score 0 01/19/2023 Sex and Gender Information Value Date Recorded Sex Assigned at Male 05/30/2022 10:31 AM EDT Legal Sex Male 10:31 AM EDT Gender Identity Male 05/30/2022 10:31 AM EDT Sexual Orientation Straight 05/30/2022 10 :31 AM EDT documented as of this encounter Plan of Treatment Upcoming Encounters Date Type Department Care Team (Late st Contact Info) Description 10/09/2024 10:30 AM EDT Office Visit [facility] [address] [place] [phone] Ruth Barrios MD [address] [place] [phone] 10/23/2024 9:00 AM EDT Office Visit [address] [address] Ruth Barrios MD [address] [place] [phone] 01/15/2025 11:15 AM EDT Office Visit [address] [phone] NameGerry MD [address] [place] [phone] documented as of this encounter Visit Diagnoses Not on filedocumented in this encounter Additional Health Concerns Assessment Noted Time PHQ-9 Depression Total Score: 0 01/20/20 23 10:35 AM EDT documented as of this encounter Care Teams Software Configuration Manager Relationship Specialty Start Date End Date NameGerry MD [address] [place] [phone] PCP - General Family Medicine 02/16/17 documented as of this encounter
[2024-10-09 11:21] LABS: MANUAL DIFF FLAG NO
[2024-10-09 11:44] LABS: Basophils Percent Auto 0.2 % (0-2); Eosinophils Absolute Auto 0.3 X10*3/uL (0.0-0.4); Eosinophils Percent Auto 3.3 % (0-4); Hematocrit 43.2 % (42.0-52.0); Hemoglobin 14.3 g/dl (14.0-18.0); Imm Gran Abs Auto 0.04 X10*3/uL (0.00-0.03); Imm Gran Pct Auto 0.5 % (0.0-0.4); Lymphocytes Absolute Auto 2.6 X10*3/uL (1.2-4.9); Lymphocytes Percent Auto 29.9 % (20-40); Mean Corpuscular HGB Conc 33.1 g/dl (31.0-36.0); Mean Corpuscular Hemoglobin 28.3 pg (27.0-33.0); Mean Corpuscular Volume 85.5 fL (80.0-98.0); Mean Platelet Volume 10.6 fL (9.4-12.4); Monocytes Absolute Auto 0.6 X10*3/uL (0.1-1.2); Monocytes Percent Auto 7.2 % (2-11); Neutrophils Absolute Auto 5.1 x10*3/uL (2.0-8.3); Neutrophils Percent Auto 58.9 % (45-73); Platelet Count 264 X10*3/uL (160-400); Red Blood Count 5.05 X10*6/uL (4.60-5.80); Red Cell Distribution Width 11.9 % (11.0-16.0); White Blood Count 8.6 X10*3/uL (4.8-10.8)
== END 2024-10-09 08:39 | disposition home or self-care (01) ==
LOC: HO.HHCL 08:38
PROVIDERS: Visit Provider Internal Medicine Geriatric Medicine
DX: Z51.81 Encounter for therapeutic drug level monitoring (principal); Z79.1 Long term (current) use of non-steroidal anti-inflammatories (NSAID)
CPT/HCPCS: 36415; 85025

== ENCOUNTER 2025-01-29 08:33 | Outpatient (REF) | payer MEDICAID, SELFPAY ==
--- OUTSIDE RECORDS SUMMARY | 2025-01-29 08:37 | XMS_ITS | Clinical Summary ---
Author Organization [employer] Address [address] [place] [address] Care Team Providers Care Director Surgical Name Role Phone Name, Gerry ANDERSON Primary Care Provider [phone] Allergies No known active allergies Medications * This document contains information received from the source organization and may not represent a complete record from that organization. atorvastatin (Lipitor) 20 MG tablet 01/22/20 22 Active cloNIDine (Catapres) 0.1 MG tablet Active Diclofenac Sodium 1 % gel 12/11/19 22 Active fish oil concentrate ([place]-3) 1000 MG capsule 11/16/19 19 Active hydrocortisone 1 % cream [...] needed 168 lozenge 1 11/24/19 23 Active buPROPion XL (Wellbutrin XL) 300 MG 24 hr tabletIndicatio ns:Depressive disorder TAKE 1 TABLET BY MOUTH EVERY MORNING KRUPA 1 CADA MANANA (DEPRESION/D EJAR DE FUMAR) 30 tablet 11 01/16/20 25 Active ibuprofen 800 MG tabletIndicatio ns:Chronic pain of left knee TAKE 1 TABLET BY MOUTH THREE TIMES DAILY WITH FOOD 90 tablet 1 01/16/20 25 Active sertraline (Zoloft) 100 MG tabletIndicatio ns:Depressive disorder Take 2 tablets (200 mg) by mouth Once per day. 60 tablet 11 01/16/20 25 026 Active omeprazole (PriLOSEC) [address] capsule take 1 capsule by oral route every day 30 minutes to 1 hour before a meal 30 capsule 01/16/20 25 Active hydrOXYzine HCl (Atarax) 25 MG tabletIndicatio ns:Depressive disorder take 1 tablet by oral route 3 times every day as needed as needed for anxiety 90 tablet 01/16/20 25 Active Buprenorphine HCl-Naloxone HCl (Suboxone) 8-2 MG SL filmIndications :Uncomplicated opioid dependence (CMS/HCC) Place 1 Film under the tongue 3 times daily for 28 days. 84 Film 01/23/20 25 025 Active hydrOXYzine HCl (Atarax) 25 MG tabletIndicatio ns:Depressive disorder take 1 tablet by oral route 3 times every day as needed as needed for anxiety 90 tablet 10/09/19 025 Discontinued(Re order (will not trigger notification to Pharmacy)) sertraline (Zoloft) 100 MG tabletIndicatio ns:Depressive disorder Take 2 tablets (200 mg) by mouth Once per day. 60 tablet 10/09/19 025 Discontinued(Re order (will not trigger notification to Pharmacy)) buPROPion XL (Wellbutrin XL) 300 MG 24 hr tabletIndicatio ns:Depressive disorder TAKE 1 TABLET BY MOUTH EVERY MORNING KRUPA 1 CADA MANANA (DEPRESION/D EJAR DE FUMAR) 30 tablet 10/09/19 025 Discontinued(Re order (will not trigger notification to Pharmacy)) omeprazole (PriLOSEC) [address] capsule take 1 capsule by oral route every day 30 minutes to 1 hour before a meal 30 capsule 10/09/19 025 Discontinued(Re order (will not trigger notification to Pharmacy)) ibuprofen 800 MG tabletIndicatio ns:Chronic pain of left knee TAKE 1 TABLET BY MOUTH THREE TIMES DAILY WITH FOOD 90 tablet 12/14/19 025 Discontinued(Re order (will not trigger notification to Pharmacy)) Buprenorphine HCl-Naloxone HCl (Suboxone) 8-2 MG SL filmIndications :Uncomplicated opioid dependence (CMS/HCC) Place 1 Film under the tongue 3 times daily for 28 days. 84 Film 12/26/19 25 025 Discontinued(Re order (will not trigger notification to Pharmacy)) Active Problems Problem Noted Date Diagnosed Date Osteoarthritis of right knee 06/21/2024 Tobacco use 11/23/2022 Assessment & Plan (11/17/2024 4:20 AM EDT): - making a progress towards his goal - nicotine patch and lozenge Assessment & Plan (09/24/2024 9:54 PM EST): [...] hand Opioid dependence 08/23/2017 Assessment & Plan (12/18/2024 4:55 AM EDT): -long-term remission stage of recovery -Recurrence after 1 year (December 2017 - January 2019) of maintenance stage due to postop (TKR on 04/02/19) pain management -OD on 04/22/20. -Detox and CSS at [facility] in Feb 2020May 2020 -Has recovery counselor and is in residential program currently, since May 2020 -Overdose risk: intermediate. Risk factors - decreased tolerance; history of overdose (but not recent) -Co-prescription of high-risk medications: none -Discussed about the importance of harm reduction and OD prevention -Continue current recovery effort and support Assessment & Plan (12/04/2024 5:29 AM EDT): -long-term remission stage of recovery -Recurrence after 1 year (December 2017 - January 2019) of maintenance stage due to postop (TKR on 04/02/19) pain management -OD on 04/22/20. -Detox and CSS at [facility] in Feb 2020May 2020 -Has recovery counselor and is in residential program currently, since May 2020 -Overdose risk: intermediate. Risk factors - decreased tolerance; history of overdose (but not recent) -Co-prescription of high-risk medications: none -Discussed about the importance of harm reduction and OD prevention -Continue current recovery effort and support Assessment & Plan (11/17/2024 4:20 AM EDT): -long-term remission stage of recovery -Recurrence after 1 year (December 2017 - January 2019) of maintenance stage due to postop (TKR on 04/02/19) pain management -OD on 04/22/20. -Detox and CSS at [facility] in Feb 2020May 2020 -Has recovery counselor and is in residential program currently, since May 2020 -Overdose risk: intermediate. Risk factors - decreased tolerance; history of overdose (but not recent) -Co-prescription of high-risk medications: none -Discussed about the importance of harm reduction and OD prevention -Continue current recovery effort and support Assessment & Plan (10/22/2024 8:49 PM EDT): -long-term remission stage of recovery -Recurrence after 1 year (December 2017 - January 2019) of maintenance stage due to postop (TKR on 04/02/19) pain management -OD on 04/22/20. -Detox and CSS at [facility] in Feb 2020May 2020 -Has recovery counselor and is in residential program currently, since May 2020 -Overdose risk: intermediate. Risk factors - decreased tolerance; history of overdose (but not recent) -Co-prescription of high-risk medications: none -Discussed about the importance of harm reduction and OD prevention -Continue current recovery effort and support Assessment & Plan (10/08/2024 5:16 PM EDT): -long-term remission stage of recovery -Recurrence after 1 year (December 2017 - January 2019) of maintenance stage due to postop (TKR on 04/02/19) pain management -OD on 04/22/20. -Detox and CSS at [facility] in Feb 2020May 2020 -Has recovery counselor and is in residential program currently, since May 2020 -Overdose risk: intermediate. Risk factors - decreased tolerance; history of overdose (but not recent) -Co-prescription of high-risk medications: none -Discussed about the importance of harm reduction and OD prevention -Continue current recovery effort and support Assessment & Plan (09/24/2024 9:55 PM EST): -long-term remission stage of recovery -Recurrence after 1 year (December 2017 - January 2019) of maintenance stage due to postop (TKR on 04/02/19) pain management -OD on 04/22/20. -Detox and CSS at [facility] in Feb 2020May 2020 -Has recovery [...] -OD on 04/22/20. -Detox and CSS at [facility] in Feb 2020May 2020 -Has recovery counselor and is in residential program currently, since May 2020 -Overdose risk: intermediate. Risk factors - decreased tolerance; history of overdose (but not recent) -Co-prescription of high-risk medications: none -Discussed about the importance of harm reduction and OD prevention -Continue Vocfnypk94/4 mg daily Assessment & Plan (08/14/2024 5:18 AM EST): -long-term remission stage of recovery -Recurrence after 1 year (December 2017 - January 2019) of maintenance stage due to postop (TKR on 04/02/19) pain management -OD on 04/22/20. -Detox and CSS at [facility] in Feb 2020May 2020 -Has recovery counselor and is in residential program currently, since May 2020 -Overdose risk: Average. -Co-prescription of high-risk medications: none -Discussed about the importance of harm reduction and OD prevention -Continue Hmoshreu56/4 mg daily Assessment & Plan (07/17/2024 5:55 AM EST): -long-term remission stage of recovery -Recurrence after 1 year (December 2017 - January 2019) of maintenance stage due to postop (TKR on 04/02/19) pain management -OD on 04/22/20. -Detox and CSS at [facility] in Feb 2020May 2020 -Has recovery counselor and is in residential program currently, since May 2020 -Overdose risk: Average. -Co-prescription of high-risk medications: none -Discussed about the importance of harm reduction and OD prevention -Continue Jofuaeya52/4 mg daily Assessment & Plan (07/03/2024 10:33 AM EST): -long-term remission stage of recovery -Recurrence after 1 year (December 2017 - January 2019) of maintenance stage due to postop (TKR on 04/02/19) pain management -OD on 04/22/20. -Detox and CSS at [facility] in Feb 2020May 2020 -Has recovery counselor and is in residential program currently, since May 2020 -Overdose risk: Average. -Co-prescription of high-risk medications: none -Discussed about the importance of harm reduction and OD prevention -Continue Owqvcptl81/4 mg daily Assessment & Plan (05/07/2024 10:17 PM EDT): -long-term remission stage of recovery -Recurrence after 1 year (December 2017 - January 2019) of maintenance stage due to postop (TKR on 04/02/19) pain management -OD on 04/22/20. -Detox and CSS at [facility] in Feb 2020May 2020 -Has recovery counselor and is in residential program currently, since May 2020 -Overdose risk: Average. -Co-prescription of high-risk medications: none -Discussed about the importance of harm reduction and OD prevention -Continue Twzbvhyb77/4 mg daily Assessment & Plan (01/03/2024 5:00 AM EDT): -long-term remission stage of recovery -Recurrence after 1 year (December 2017 - January 2019) of maintenance stage due to postop (TKR on 04/02/19) pain management -OD on 04/22/20. -Detox and CSS at [facility] in Feb 2020May 2020 -Has recovery counselor and is in residential program currently, since May 2020 -Overdose risk: Average. -Co-prescription of high-risk medications: none -Discussed about the importance of harm reduction and OD prevention -Continue Vjxmwzpu26/4 mg daily Assessment & Plan (12/20/2023 5:20 AM EDT): -long-term remission stage of recovery -Recurrence after 1 year (December 2017 - January 2019) of maintenance stage due to postop (TKR on 04/02/19) pain management -OD on 04/22/20. -Detox and CSS at [facility] in Feb 2020May 2020 -Has recovery counselor and is in residential program currently, since May 2020 -Overdose risk: Average. -Co-prescription of high-risk medications: none -Discussed about the importance of harm reduction and OD prevention -Continue Inoyvgbm88/4 mg daily Assessment & Plan (12/06/2023 10:25 AM EDT): -long-term remission stage of recovery -Recurrence after 1 year (December 2017 - January 2019) of maintenance stage due to postop (TKR on 04/02/19) pain management -OD on 04/22/20. -Detox and CSS at [facility] in Feb 2020May 2020 -Has recovery counselor and is in residential program currently, since May 2020 -Overdose risk: Average. -Co-prescription of high-risk medications: none -Discussed about the importance of harm reduction and OD prevention -Continue Qlpvavjs11/4 mg daily Assessment & Plan (11/21/2023 11:06 PM EDT): -long-term remission stage of recovery -Recurrence after 1 year (December 2017 - January 2019) of maintenance stage due to postop (TKR on 04/02/19) pain management -OD on 04/22/20. -Detox and CSS at [facility] in Feb 2020May 2020 -Has recovery counselor and is in residential program currently, since May 2020 -Overdose risk: Average. -Co-prescription of high-risk medications: none -Discussed about the importance of harm reduction and OD prevention -Continue Pzlaehcu35/4 mg daily Assessment & Plan (11/08/2023 5:23 AM EDT): -long-term remission stage of recovery -Recurrence after 1 year (December 2017 - January 2019) of maintenance stage due to postop (TKR on 04/02/19) pain management -OD on 04/22/20. -Detox and CSS at [facility] in Feb 2020May 2020 -Has recovery counselor and is in residential program currently, since May 2020 -Overdose risk: Average. -Co-prescription of high-risk medications: none -Discussed about the importance of harm reduction and OD prevention -Continue Qfllftwp95/4 mg daily Assessment & Plan (10/25/2023 5:11 AM EDT): -long-term remission stage of recovery -Recurrence after 1 year (December 2017 - January 2019) of maintenance stage due to postop (TKR on 04/02/19) pain management -OD on 04/22/20. -Detox and CSS at [facility] in Feb 2020May 2020 -Has recovery counselor and is in residential program currently, since May 2020 -Overdose risk: Average. -Co-prescription of high-risk medications: none -Discussed about the importance of harm reduction and OD prevention -Continue Ncfzpddg72/4 mg daily Assessment & Plan (10/11/2023 10:04 AM EDT): -long-term remission stage of recovery -Recurrence after 1 year (December 2017 - January 2019) of maintenance stage due to postop (TKR on 04/02/19) pain management -OD on 04/22/20. -Detox and CSS at [facility] in Feb 2020May 2020 -Has recovery counselor and is in residential program currently, since May 2020 -Overdose risk: Average. -Discussed about the importance of harm reduction and OD prevention -Continue Sxjtjogk60/4 mg daily Assessment & Plan (09/12/2023 5:04 PM EST): -long-term remission stage of recovery -Recurrence after 1 year (December 2017 - January 2019) of maintenance stage due to postop (TKR on 04/02/19) pain management -OD on 04/22/20. -Detox and CSS at [facility] in Feb 2020May 2020 -Has recovery counselor and is in residential program currently, since May 2020 -Overdose risk: Average. -Discussed about the importance of harm reduction and OD prevention -Continue Kakvudep53/4 mg daily Assessment & Plan (07/18/2023 10:50 PM EST): -long-term remission stage of recovery -Recurrence after 1 year (December 2017 - January 2019) of maintenance stage due to postop (TKR on 04/02/19) pain management -OD on 04/22/20. -Detox and CSS at [facility] in Feb 2020May 2020 -Has recovery counselor and is in residential program currently, since May 2020 -Overdose risk: Average. -Discussed about the importance of harm reduction and OD prevention -Continue Bmrmfjix56/4 mg daily Assessment & Plan (06/07/2023 5:32 AM EST): -long-term remission stage of recovery -Recurrence after 1 year (December 2017 - January 2019) of maintenance stage due to postop (TKR on 04/02/19) pain management -OD on 04/22/20. -Detox and CSS at [facility] in Feb 2020May 2020 -Has recovery counselor and is in residential program currently, since May 2020 -Overdose risk: Average. -Discussed about the importance of harm reduction and OD prevention -Continue Kkugscrt35/4 mg daily Assessment & Plan (05/09/2023 10:19 PM EDT): -long-term remission stage of recovery -Recurrence after 1 year (December 2017 - January 2019) of maintenance stage due to postop (TKR on 04/02/19) pain management -OD on 04/22/20. -Detox and CSS at [facility] in Feb 2020May 2020 -Has recovery counselor and is in residential program currently, since May 2020 -Overdose risk: Average. -Discussed about the importance of harm reduction and OD prevention -Continue Unqwqbkq76/4 mg daily Assessment & Plan (11/23/2022 9:48 AM EDT): -long-term remission stage of recovery -Recurrence after 1 year (December 2017 - January 2019) of maintenance stage due to postop (TKR on 04/02/19) pain management -OD on 04/22/20. -Detox and CSS at [facility] in Feb 2020May 2020 -Has recovery counselor and is in residential program currently, since May 2020 -Discussed about the importance of harm reduction and OD prevention (Carry Narcan) -Continue Hkzjaypw65/4 mg daily Assessment & Plan (11/09/2022 10:59 AM EDT): -long-term remission stage of recovery -Recurrence after 1 year (December 2017 - January 2019) of maintenance stage due to postop (TKR on 04/02/19) pain management -OD on 04/22/20. -Detox and CSS at [facility] in Feb 2020May 2020 -Has recovery counselor and is in residential program currently, since May 2020 -Discussed about the importance of harm reduction and OD prevention (Carry Narcan) -Continue Afcrgsep08/4 mg daily Assessment & Plan (10/26/2022 4:05 PM EDT): -long-term remission stage of recovery -Recurrence after 1 year (December 2017 - January 2019) of maintenance stage due to postop (TKR on 04/02/19) pain management -OD on 04/22/20. -Detox and CSS at [facility] in Feb 2020May 2020 -Has recovery counselor and is in residential program currently, since May 2020 -Discussed about the importance of harm reduction and OD prevention (Carry Narcan) -Continue Zoojukrr15/4 mg daily Assessment & Plan (09/14/2022 9:53 AM EST): -long-term remission stage of recovery -Recurrence after 1 year (December 2017 - January 2019) of maintenance stage due to postop (TKR on 04/02/19) pain management -OD on 04/22/20. -Detox and CSS at [facility] in Feb 2020May 2020 -Has recovery counselor and is in residential program currently, since May 2020 -Discussed about the importance of harm reduction and OD prevention (Carry Narcan) -Continue Awgavhcz59/4 mg daily Assessment & Plan (08/31/2022 10:11 AM EST): -long-term remission stage of recovery -Recurrence after 1 year (December 2017 - January 2019) of maintenance stage due to postop (TKR on 04/02/19) pain management -OD on 04/22/20. -Detox and CSS at [facility] in Feb 2020May 2020 -Has recovery counselor and is in residential program currently, since May 2020 -Discussed about the importance of harm reduction and OD prevention (Carry Narcan) -Continue Jskysjto11/4 mg daily Assessment & Plan (07/20/2022 5:13 AM EST): -long-term remission stage of recovery -Recurrence after 1 year (December 2017 - January 2019) of maintenance stage due to postop (TKR on 04/02/19) pain management -OD on 04/22/20. -Detox and CSS at [facility] in Feb 2020May 2020 -Has recovery counselor and is in residential program currently, since May 2020 -Discussed about the importance of harm reduction and OD prevention (Carry Narcan) -Continue Dppqygyg72/4 mg daily Depressive disorder 06/26/2017 Polyp of [...] Encounters Date Type Department Care Team Description 01/22/2025 Refill [facility] [address] [place] [address] [phone] Jennifer Puente RN Uncomplicated opioid dependence (CMS/HCC) 01/15/2025 11:15 AM EDT Office Visit [facility] [address] [place] [address] [phone] Gerry Salter MD Chronic pain of left knee (Primary Dx); Depressive disorder; Screening for diabetes mellitus 01/15/2025 10:00 AM EDT Clinical Support [facility] [address] [place] [address] [phone] Arun Ledesma RN Uncomplicated opioid dependence (CMS/HCC) (Primary Dx) 01/15/2025 Travel 01/14/2025 Telephone [facility] [address] [place] [address] [phone] Gerry Salter MD Chart Prep 01/08/2025 Refill [facility] [address] [place] [address] [phone] Arun Ledesma RN Uncomplicated opioid dependence (CMS/HCC) 01/01/2025 10:15 AM EDT Clinical Support [address] [id number] Arun Ledesma RN Uncomplicated opioid dependence (CMS/HCC) (Primary Dx) 01/01/2025 Travel 12/25/2024 Refill [facility] [address] [place] [address] [phone] Amadou Lim RN Uncomplicated opioid dependence (CMS/HCC) 12/18/2024 9:45 AM EDT Office Visit [facility] [address] [place] [address] [phone] Ruth Barrios MD Uncomplicated opioid dependence (CMS/HCC) (Primary Dx) 12/18/2024 Travel 12/13/2024 Refill [facility] [address] [place] [address] [phone] Gerry Salter MD Chronic pain of left knee 12/04/2024 9:45 AM EDT Office Visit [facility] [address] [place] [address] [phone] Ruth Barrios MD Uncomplicated opioid dependence (CMS/HCC) (Primary Dx) 12/04/2024 Travel 11/27/2024 Refill [facility] [address] [place] [address] [phone] Arun Ledesma RN Uncomplicated opioid dependence (CMS/HCC) 11/20/2024 9:15 AM EDT Office Visit [facility] [address] [place] [address] [phone] Ruth Barrios MD Uncomplicated opioid dependence (CMS/HCC) (Primary Dx); Tobacco use 11/20/2024 Travel 11/15/2024 Telephone [facility] [address] [place] [address] [phone] Arun Ledesma RN PT-1 11/06/2024 10:45 AM EDT Clinical Support [address] [phone] Arun Ledesma RN Uncomplicated opioid dependence (CMS/HCC) (Primary Dx) 11/06/2024 Travel 10/30/2024 Refill [facility] [address] [place] [address] [phone] Arun Ledesma RN Uncomplicated opioid dependence ([facility]/HCC) from Last 3 Months Immunizations Immunization Administration Dates Next Due Hep A, Adult [...] with others, in a hotel, in a fdc, living outside on the street, on a [...] Sign Reading Time Taken Comments Blood Pressure 142/92 01/15/2025 11:23 AM EDT Pulse 84 01/15/2025 11:23 AM EDT Temperature 36.7 C (98 F) 01/15/2025 11:23 AM EDT Respiratory Rate 18 01/15/2025 11:23 AM EDT Oxygen Saturation 98% 01/15/2025 11:23 AM EDT Inhaled Oxygen Concentration - - Weight 115 kg (253 lb 9.6 oz) 01/15/2025 11:23 A M EDT Height 177.8 cm (5' 10 ) 01/15/2025 11:23 AM EDT Body Mass Index 36.39 01/15/2025 11:23 AM EDT Plan of Treatment Upcoming Encounters Date Type Department Care Team (Late st Contact Info) Description 01/29/2025 9:45 AM EDT Clinical Support [facility] [address] [place] [address] [phone] Laurel Mix, RN [address] [place] [address] [phone] 02/12/2025 10:15 AM EDT Clinical Support [facility] [address] [place] [address] [phone] Arun Ledesma, NIRALI [address] [place] [phone] 04/28/2025 11:00 AM EDT Office Visit [facility] [address] [place] [address] [phone] Name, MD Gerry [address] [place] [address] [phone] Health Maintenance Due Date Last Done Comments CT Colonography 1965 Colonoscopy 1965 Colorectal Cancer Screening 1965 FIT DNA/Cologuard 1965 FIT 1965 FOBT 1965 Sigmoidoscopy 1965 Disability Screening 1965 Zoster Vaccines (1 of 2) 2015 Pneumococcal Vaccine: 50+ Years (2 of 2 - PCV) 06/26/2018 06/26/2017 COVID-19 Vaccine ( - season) 2024 09/01/2021, 09/08/2020, 08/15/2020 Depression Screening 03/20/2025 03/20/2024, 03/20/20 24 SDOH Screening 03/20/2025 03/20/2024 Influenza Vaccine (Season Ended) 2025 04/28/2022, 05/20/2020, 04/24/2019, Additional history exists Alcohol/Substance Use Screening 06/21/2025 06/21/2024 Tobacco Screening 01/15/2026 01/15/2025 DTaP/Tdap/Td Vaccines (2 - Td or Tdap) [...] patient's age to complete this topic Meningococcal B Vaccine Aged Out No l onger eligible based on patient's age to complete [...] stage from opioid use disorder General On track(01/16/20 10:22 AM EDT) Yes Ruth aBrrios MD Quit using tobacco (cigarettes, smokeless, etc) Tobacco Use Worsening(12/29 10:22 AM EDT) No Ruth Barrios MD Note: 1.5 cigs per day on 10/23/24 1 cig day on 01/01/25 Procedures Procedure Name Priority Date/Time Associated Diagnosis Comments POCT GABI-14 URINE DRUG SCREEN Routine 01/15/2025 10:24 AM EDT Uncomplicated opioid dependence (CMS/HCC) POCT GABI-14 URINE DRUG SCREEN Routine 01/01/2025 8:56 AM EDT Uncomplicated opioid dependence (CMS/HCC) POCT GABI-14 URINE DRUG SCREEN Routine 12/18/2024 9:21 AM EDT Uncomplicated opioid dependence (CMS/HCC) POCT GABI-14 URINE DRUG SCREEN Routine 12/04/2024 9:18 AM EDT Uncomplicated opioid dependence (CMS/HCC) POCT GABI-14 URINE DRUG SCREEN Routine 11/20/2024 9:02 AM EDT Uncomplicated opioid dependence (CMS/HCC) POCT GABI-14 URINE DRUG SCREEN Routine 11/06/2024 9:15 AM EDT Uncomplicated opioid dependence (CMS/HCC) HIV 1/2 ANTIGEN/ANTIBODY, FOURTH GENERATION W/RFL Routine 11/02/2022 9:00 AM EDT Uncomplicated opioid dependence (CMS/HCC) Routine screening for STI (sexually transmitted infection) LIPID PANEL, STANDARD Routine 08/31/2022 11:38 AM EST Screening for cholesterol level from Last 3 Months or Most Recently Relevant to Health Maintenance Results * POCT GABI-14 Urine Drug Screen (01/15/2025 10:24 AM EDT) Only the most recent of6 resultswithin the time period is included. THC Negative Cocaine Screen, Urine Negative Opiate Screen, Urine Negative Methamphetamine Screen Urine Negative Amphetamine Screen, Urine Negative Benzodiazepines Screen, Urine Negative Barbiturate Screen, Urine Negative Methadone Screen, Urine Negative Buprenophine Screen, Urine Positive TCA, Urine Negative MDMA Urine Negative ng/mL Oxycodone Screen, Urine Negative Phencyclidine (PCP), Urine Negative Fentanyl, Urine Negative Urine Urine specimen obtained by clean catch procedure / Unknown 01/15/2025 10:24 AM EDT Ruth Barrios MD POINT OF CARE TEST ENTER/EDIT OR DERABLES Final Result * HIV-1/2 Antigen and Antibodies, Fourth Generation, with Reflexes (11/02/2022 9:00 AM EDT) Pathologist [facility] HIV Antigen/Antibody, 4th Generation NON-REAC TIVE NON-REAC TIVE [facility] Comment: HIV-1 antigen and HIV-1/HIV-2 antibodies were not detected. There is no laboratory evidence of HIV infection. PLEASE NOTE: This information has been disclosed to you from records whose confidentiality may be protected by state law. If your state requires such protection, then the state law prohibits you from making any further disclosure of the information without the specific written consent of the person to whom it pertains, or as otherwise permitted by law. A general authorization for the release of medical or other information is NOT sufficient for this purpose. For additional information please refer to http://education.[employer]/faq/CGC187 (This link is being provided for informational/ educational purposes only.) The performance of this assay has not been clinically validated in patients less than 2 years old. Blood Venous blood specimen / Unknown 11/02/2022 9:00 AM EDT 11/02/2022 9:01 AM EDT Narrative [facility] - 11/03/2022 3:29 PM EDT FASTING:YES FASTING: YES Ruth Barrios MD LAB BLOOD ORDERABLES Final Resul t [facility] [address], [place] [address] [facility] [address] [place] [address] * (ABNORMAL) Lipid Panel, Standard (08/31/2022 11:38 AM EST) Cholesterol, Total 181 <200 mg/dL [facility] HDL Cholesterol 39(L) > OR = 40 mg/dL [facility] Triglycerides 108 <150 mg/dL [facility] LDL Cholesterol 120(H) mg/dL (calc) [facility] Comment: Reference range: <100 Desirable range <100 mg/dL for primary prevention; <70 mg/dL for patients with CHD or diabetic patients with > or = 2 CHD risk factors. LDL-C is now calculated using the Antonino calculation, which is a validated novel method providing better accuracy than the Friedewald equation in the estimation of LDL-C. Braeden SS et al. SAPPHIRE. 2013;310(19): 5814-3198 (http://education.[employer]/faq/HQU313) Chol/HDLC Ratio 4.6 <5.0 (calc) [facility] Non-HDL Cholesterol 142(H) <130 mg/dL (calc) [facility] Comment: For patients with diabetes plus 1 major ASCVD risk factor, treating to a non-HDL-C goal of <100 mg/dL (LDL-C of <70 mg/dL) is considered a therapeutic option. Blood Venous blood specimen / Unknown 08/31/2022 11:38 AM EST 08/31/2022 11:39 AM EST Narrative [facility] - 09/01/2022 1:33 AM EST FASTING:YES FASTING: YES us Gerry Salter MD LAB BLOOD ORDERABLES Final Resul t [facility] [address] [facility] [place] [address] [facility] [address] [facility], ([address]) [place] [address] from Last 3 Months or Most Recently Relevant to Health Maintenance Insurance C3 Care Teams Director Surgical Relationship Specialty Start Date End Date Name, MD Gerry [address] [place] [id number] PCP - General Family Medicine 02/16/17
[2025-01-29 11:29] LABS: Hemoglobin A1C 136.1992 umol/L; Total Hemoglobin (HGBA1C) 3733.0661 umol/L
[2025-01-29 12:39] LABS: Alanine Aminotransferase 33 U/L (0-40); Albumin Level 5.0 g/dL (3.5-5.0); Alkaline Phosphatase 75 U/L (39-117); Anion Gap 11 (12-20); Aspartate Amino Transferase 43 U/L (5-37); Blood Urea Nitrogen 22 mg/dL (9-16); Calcium 9.0 mg/dL (8.4-10.2); Carbon Dioxide 32 mmol/L (22-29); Chloride 99 mmol/L (96-108); Estimated Glomerular Filt Rate 60; Potassium 4.1 mmol/L (3.3-5.1); Sodium 138 mmol/L (135-145); Total Protein 8.7 g/dL (6.5-8.0)
== END 2025-01-29 08:34 | disposition home or self-care (01) ==
LOC: HO.HHCL 08:33
PROVIDERS: PCP Internal Medicine Geriatric Medicine; Visit Provider Internal Medicine Geriatric Medicine
DX: Z13.1 Encounter for screening for diabetes mellitus (principal)
CPT/HCPCS: 36415; 80053; 83036

== ENCOUNTER 2025-05-07 08:50 | Outpatient (REF) | payer MEDICAID, SELFPAY ==
[2025-05-07 11:59] LABS: Alanine Aminotransferase 37 U/L (0-40); Albumin Level 4.8 g/dL (3.5-5.0); Alkaline Phosphatase 72 U/L (39-117); Anion Gap 10 (12-20); Aspartate Amino Transferase 53 U/L (5-37); Blood Urea Nitrogen 19 mg/dL (9-16); Calcium 9.3 mg/dL (8.4-10.2); Carbon Dioxide 31 mmol/L (22-29); Chloride 104 mmol/L (96-108); Estimated Glomerular Filt Rate > 60; Potassium 4.4 mmol/L (3.3-5.1); Sodium 141 mmol/L (135-145); Total Protein 8.2 g/dL (6.5-8.0)
== END 2025-05-07 08:51 | disposition home or self-care (01) ==
LOC: HO.HHCL 08:50
PROVIDERS: PCP Internal Medicine Geriatric Medicine; Visit Provider Internal Medicine Geriatric Medicine
DX: Z51.81 Encounter for therapeutic drug level monitoring (principal); Z79.1 Long term (current) use of non-steroidal anti-inflammatories (NSAID)
CPT/HCPCS: 36415; 80053

== ENCOUNTER 2025-06-04 08:16 | Outpatient (REF) | payer MEDICAID, SELFPAY ==
--- OUTSIDE RECORDS SUMMARY | 2025-06-04 08:23 | XMS_ITS | Clinical Summary ---
Author Organization [employer] Address [address] [place] [address] [address] [place] [address] Care Team Providers Care Health Information Clerk Name Role Phone Name, Gerry ANDERSON Primary Care Provider [phone] Allergies No known active allergies Medications * This document contains information received from the source organization and may not represent a complete record from that organization. atorvastatin (Lipitor) 20 MG tablet 01/22/20 22 Active cloNIDine (Catapres) 0.1 MG tablet Active Diclofenac Sodium 1 % gel 12/11/19 22 Active fish oil concentrate (Rayland-3) 1000 MG capsule 11/16/19 19 Active hydrocortisone [...] needed 168 lozenge 1 11/24/19 23 Active ibuprofen 800 MG tabletIndicatio ns:Chronic pain of left knee TAKE 1 TABLET BY MOUTH THREE TIMES DAILY WITH FOOD 90 tablet 1 01/16/20 25 Active hydrOXYzine HCl (Atarax) 25 MG tabletIndicatio ns:Depressive disorder take 1 tablet by oral route 3 times every day as needed as needed for anxiety 90 tablet 11 01/16/20 25 Active buPROPion XL (Wellbutrin XL) 300 MG 24 hr tabletIndicatio ns:Depressive disorder TAKE 1 TABLET BY MOUTH EVERY MORNING KRUPA 1 CADA MANANA (DEPRESION/D EJAR DE FUMAR) 30 tablet 11 04/28/20 25 Active sertraline (Zoloft) 100 MG tabletIndicatio ns:Depressive disorder Take 2 tablets (200 mg) by mouth Once per day. 60 tablet 04/28/20 25 026 Active omeprazole (PriLOSEC) [address] capsule take 1 capsule by oral route every day 30 minutes to 1 hour before a meal 30 capsule 04/28/20 25 Active Buprenorphine HCl-Naloxone HCl (Suboxone) 8-2 MG SL filmIndications :Uncomplicated opioid dependence (CMS/HCC) ([facility]) Place 1 Film under the tongue 3 times daily for 28 days. 84 Film 05/14/20 25 025 Active Buprenorphine HCl-Naloxone HCl (Suboxone) 8-2 MG SL filmIndications :Uncomplicated opioid dependence (CMS/HCC) ([facility]) Place 1 Film under the tongue 3 times daily for 28 days. 84 Film 04/16/20 25 025 Discontinued(Re order (will not trigger [...] Partial thickness burn of back of hand 2 Opioid dependence 08/23/2017 Assessment & Plan (05/21/2025 6:03 AM EDT): -long-term remission stage of recovery -Recurrence after 1 year (December 2017 - January 2019) of maintenance stage due to postop (TKR on 04/02/19) pain management -OD on 04/22/20. -Detox and CSS at [facility] in Feb 2020May 2020 -Has recovery counselor and is in residential program currently, since May 2020 -Overdose risk: low-intermediate. Risk factors - decreased tolerance; history of overdose (but not recent) -Co-prescription of high-risk medications: none -Discussed about the importance of harm reduction and OD prevention -Continue current recovery effort and support Assessment & Plan (05/06/2025 5:33 PM EDT): -long-term remission stage of recovery -Recurrence after 1 year (December 2017 - January 2019) of maintenance stage due to postop (TKR on 04/02/19) pain management -OD on 04/22/20. -Detox and CSS at [facility] in Feb 2020May 2020 -Has recovery counselor and is in residential program currently, since May 2020 -Overdose risk: low-intermediate. Risk factors - decreased tolerance; history of overdose (but not recent) -Co-prescription of high-risk medications: none -Discussed about the importance of harm reduction and OD prevention -Continue current recovery effort and support Assessment & Plan (04/23/2025 3:48 AM EDT): -long-term remission stage of recovery -Recurrence after 1 year (December 2017 - January 2019) of maintenance stage due to postop (TKR on 04/02/19) pain management -OD on 04/22/20. -Detox and CSS at [facility] in Feb 2020May 2020 -Has recovery counselor and is in residential program currently, since May 2020 -Overdose risk: low-intermediate. Risk factors - decreased tolerance; history of overdose (but not recent) -Co-prescription of high-risk medications: none -Discussed about the importance of harm reduction and OD prevention -Continue current recovery effort and support Assessment & Plan (04/09/2025 5:03 AM EDT): -long-term remission stage of recovery -Recurrence after 1 year (December 2017 - January 2019) of maintenance stage due to postop (TKR on 04/02/19) pain management -OD on 04/22/20. -Detox and [facility] at [facility] in Feb 2020May 2020 -Has recovery counselor and is in residential program currently, since May 2020 -Overdose risk: low-intermediate. Risk factors - decreased tolerance; history of overdose (but not recent) -Co-prescription of high-risk medications: none -Discussed about the importance of harm reduction and OD prevention -Continue current recovery effort and support Assessment & Plan (03/26/2025 5:52 AM EDT): -long-term remission stage of recovery -Recurrence after 1 year (December 2017 - January 2019) of maintenance stage due to postop (TKR on 04/02/19) pain management -OD on 04/22/20. -Detox and CSS at [facility] in Feb 2020May 2020 -Has recovery counselor and is in residential program currently, since May 2020 -Overdose risk: low-intermediate. Risk factors - decreased tolerance; history of overdose (but not recent) -Co-prescription of high-risk medications: none -Discussed about the importance of harm reduction and OD prevention -Continue current recovery effort and support Assessment & Plan (03/12/2025 9:35 AM EDT): -long-term remission stage of recovery -Recurrence after 1 year (December 2017 - January 2019) of maintenance stage due to postop (TKR on 04/02/19) pain management -OD on 04/22/20. -Detox and CSS at [facility] in Feb 2020May 2020 -Has recovery counselor and is in residential program currently, since May 2020 -Overdose risk: low-intermediate. Risk factors - decreased tolerance; history of overdose (but not recent) -Co-prescription of high-risk medications: none -Discussed about the importance of harm reduction and OD prevention -Continue current recovery effort and support Assessment & Plan (12/18/2024 4:55 AM EDT): -long-term remission stage of recovery -Recurrence after 1 year (December 2017 - January 2019) of maintenance stage due to postop (TKR on 04/02/19) pain management -OD on 04/22/20. -Detox and CSS at [facility] in Feb 2020May 2020 -Has recovery counselor [...] -OD on 04/22/20. -Detox and CSS at [facility] in Feb 2020May 2020 -Has recovery counselor [...] -OD on 04/22/20. -Detox and CSS at [facility] in Feb 2020May 2020 -Has recovery counselor [...] -OD on 04/22/20. -Detox and CSS at [facility] in Feb 2020May 2020 -Has recovery counselor [...] -OD on 04/22/20. -Detox and CSS at [facility] in Feb 2020May 2020 -Has recovery counselor [...] -OD on 04/22/20. -Detox and CSS at [facility] in Feb 2020May 2020 -Has recovery counselor [...] -OD on 04/22/20. -Detox and CSS at [facility] in Feb 2020May 2020 -Has recovery counselor and is in residential program currently, since May 2020 -Overdose risk: intermediate. Risk factors - decreased tolerance; history of overdose (but not recent) -Co-prescription of high-risk medications: none -Discussed about the importance of harm reduction and OD prevention -Continue Tafhymrq20/4 mg daily Assessment & Plan (08/14/2024 5:18 AM EST): -long-term remission stage of recovery -Recurrence after 1 year (December 2017 - January 2019) of maintenance stage due to postop (TKR on 04/02/19) pain management -OD on 04/22/20. -Detox and CSS at [facility] in Feb 2020May 2020 -Has recovery counselor and is in residential program currently, since May 2020 -Overdose risk: Average. -Co-prescription of high-risk medications: none -Discussed about the importance of harm reduction and OD prevention -Continue Ycypwena04/4 mg daily Assessment & Plan (07/17/2024 5:55 AM EST): -long-term remission stage of recovery -Recurrence after 1 year (December 2017 - January 2019) of maintenance stage due to postop (TKR on 04/02/19) pain management -OD on 04/22/20. -Detox and CSS at [facility] in Feb 2020May 2020 -Has recovery counselor and is in residential program currently, since May 2020 -Overdose risk: Average. -Co-prescription of high-risk medications: none -Discussed about the importance of harm reduction and OD prevention -Continue Ajisdtay86/4 mg daily Assessment & Plan (07/03/2024 10:33 AM EST): -long-term remission stage of recovery -Recurrence after 1 year (December 2017 - January 2019) of maintenance stage due to postop (TKR on 04/02/19) pain management -OD on 04/22/20. -Detox and CSS at [facility] in Feb 2020May 2020 -Has recovery counselor and is in residential program currently, since May 2020 -Overdose risk: Average. -Co-prescription of high-risk medications: none -Discussed about the importance of harm reduction and OD prevention -Continue Mgbalpuv69/4 mg daily Assessment & Plan (05/07/2024 10:17 PM EDT): -long-term remission stage of recovery -Recurrence after 1 year (December 2017 - January 2019) of maintenance stage due to postop (TKR on 04/02/19) pain management -OD on 04/22/20. -Detox and CSS at [facility] in Feb 2020May 2020 -Has recovery counselor and is in residential program currently, since May 2020 -Overdose risk: Average. -Co-prescription of high-risk medications: none -Discussed about the importance of harm reduction and OD prevention -Continue Bfzvhveb96/4 mg daily Assessment & Plan (01/03/2024 5:00 AM EDT): -long-term remission stage of recovery -Recurrence after 1 year (December 2017 - January 2019) of maintenance stage due to postop (TKR on 04/02/19) pain management -OD on 04/22/20. -Detox and CSS at [facility] in Feb 2020May 2020 -Has recovery counselor and is in residential program currently, since May 2020 -Overdose risk: Average. -Co-prescription of high-risk medications: none -Discussed about the importance of harm reduction and OD prevention -Continue Tonddycg26/4 mg daily Assessment & Plan (12/20/2023 5:20 AM EDT): -long-term remission stage of recovery -Recurrence after 1 year (December 2017 - January 2019) of maintenance stage due to postop (TKR on 04/02/19) pain management -OD on 04/22/20. -Detox and CSS at [facility] in Feb 2020May 2020 -Has recovery counselor and is in residential program currently, since May 2020 -Overdose risk: Average. -Co-prescription of high-risk medications: none -Discussed about the importance of harm reduction and OD prevention -Continue Bnyhqvwt37/4 mg daily Assessment & Plan (12/06/2023 10:25 AM EDT): -long-term remission stage of recovery -Recurrence after 1 year (December 2017 - January 2019) of maintenance stage due to postop (TKR on 04/02/19) pain management -OD on 04/22/20. -Detox and CSS at [facility] in Feb 2020May 2020 -Has recovery counselor and is in residential program currently, since May 2020 -Overdose risk: Average. -Co-prescription of high-risk medications: none -Discussed about the importance of harm reduction and OD prevention -Continue Edkgkmxu99/4 mg daily Assessment & Plan (11/21/2023 11:06 PM EDT): -long-term remission stage of recovery -Recurrence after 1 year (December 2017 - January 2019) of maintenance stage due to postop (TKR on 04/02/19) pain management -OD on 04/22/20. -Detox and CSS at [facility] in Feb 2020May 2020 -Has recovery counselor and is in residential program currently, since May 2020 -Overdose risk: Average. -Co-prescription of high-risk medications: none -Discussed about the importance of harm reduction and OD prevention -Continue Akwjxtql78/4 mg daily Assessment & Plan (11/08/2023 5:23 AM EDT): -long-term remission stage of recovery -Recurrence after 1 year (December 2017 - January 2019) of maintenance stage due to postop (TKR on 04/02/19) pain management -OD on 04/22/20. -Detox and CSS at [facility] in Feb 2020May 2020 -Has recovery counselor and is in residential program currently, since May 2020 -Overdose risk: Average. -Co-prescription of high-risk medications: none -Discussed about the importance of harm reduction and OD prevention -Continue Rpodbslq77/4 mg daily Assessment & Plan (10/25/2023 5:11 AM EDT): -long-term remission stage of recovery -Recurrence after 1 year (December 2017 - January 2019) of maintenance stage due to postop (TKR on 04/02/19) pain management -OD on 04/22/20. -Detox and CSS at [facility] in Feb 2020May 2020 -Has recovery counselor and is in residential program currently, since May 2020 -Overdose risk: Average. -Co-prescription of high-risk medications: none -Discussed about the importance of harm reduction and OD prevention -Continue Rsrxtjkm27/4 mg daily Assessment & Plan (10/11/2023 10:04 AM EDT): -long-term remission stage of recovery -Recurrence after 1 year (December 2017 - January 2019) of maintenance stage due to postop (TKR on 04/02/19) pain management -OD on 04/22/20. -Detox and CSS at [facility] in Feb 2020May 2020 -Has recovery counselor and is in residential program currently, since May 2020 -Overdose risk: Average. -Discussed about the importance of harm reduction and OD prevention -Continue Guprohjc73/4 mg daily Assessment & Plan (09/12/2023 5:04 PM EST): -long-term remission stage of recovery -Recurrence after 1 year (December 2017 - January 2019) of maintenance stage due to postop (TKR on 04/02/19) pain management -OD on 04/22/20. -Detox and CSS at [facility] in Feb 2020May 2020 -Has recovery counselor and is in residential program currently, since May 2020 -Overdose risk: Average. -Discussed about the importance of harm reduction and OD prevention -Continue Opjngdbh62/4 mg daily Assessment & Plan (07/18/2023 10:50 PM EST): -long-term remission stage of recovery -Recurrence after 1 year (December 2017 - January 2019) of maintenance stage due to postop (TKR on 04/02/19) pain management -OD on 04/22/20. -Detox and CSS at [facility] in Feb 2020May 2020 -Has recovery counselor and is in residential program currently, since May 2020 -Overdose risk: Average. -Discussed about the importance of harm reduction and OD prevention -Continue Xrxzdndt64/4 mg daily Assessment & Plan (06/07/2023 5:32 AM EST): -long-term remission stage of recovery -Recurrence after 1 year (December 2017 - January 2019) of maintenance stage due to postop (TKR on 04/02/19) pain management -OD on 04/22/20. -Detox and CSS at [facility] in Feb 2020May 2020 -Has recovery counselor and is in residential program currently, since May 2020 -Overdose risk: Average. -Discussed about the importance of harm reduction and OD prevention -Continue Ozksidkt30/4 mg daily Assessment & Plan (05/09/2023 10:19 PM EDT): -long-term remission stage of recovery -Recurrence after 1 year (December 2017 - January 2019) of maintenance stage due to postop (TKR on 04/02/19) pain management -OD on 04/22/20. -Detox and CSS at [facility] in Feb 2020May 2020 -Has recovery counselor and is in residential program currently, since May 2020 -Overdose risk: Average. -Discussed about the importance of harm reduction and OD prevention -Continue Inmdumwq15/4 mg daily Assessment & Plan (11/23/2022 9:48 AM EDT): -long-term remission stage of recovery -Recurrence after 1 year (December 2017 - January 2019) of maintenance stage due to postop (TKR on 04/02/19) pain management -OD on 04/22/20. -Detox and CSS at [facility] in Feb 2020May 2020 -Has recovery counselor and is in residential program currently, since May 2020 -Discussed about the importance of harm reduction and OD prevention (Carry Narcan) -Continue Crxyimvn07/4 mg daily Assessment & Plan (11/09/2022 10:59 AM EDT): -long-term remission stage of recovery -Recurrence after 1 year (December 2017 - January 2019) of maintenance stage due to postop (TKR on 04/02/19) pain management -OD on 04/22/20. -Detox and CSS at [facility] in Feb 2020May 2020 -Has recovery counselor and is in residential program currently, since May 2020 -Discussed about the importance of harm reduction and OD prevention (Carry Narcan) -Continue Ehukmfec77/4 mg daily Assessment & Plan (10/26/2022 4:05 PM EDT): -long-term remission stage of recovery -Recurrence after 1 year (December 2017 - January 2019) of maintenance stage due to postop (TKR on 04/02/19) pain management -OD on 04/22/20. -Detox and CSS at [facility] in Feb 2020May 2020 -Has recovery counselor and is in residential program currently, since May 2020 -Discussed about the importance of harm reduction and OD prevention (Carry Narcan) -Continue Rcpphjxr89/4 mg daily Assessment & Plan (09/14/2022 9:53 AM EST): -long-term remission stage of recovery -Recurrence after 1 year (December 2017 - January 2019) of maintenance stage due to postop (TKR on 04/02/19) pain management -OD on 04/22/20. -Detox and CSS at [facility] in Feb 2020May 2020 -Has recovery counselor and is in residential program currently, since May 2020 -Discussed about the importance of harm reduction and OD prevention (Carry Narcan) -Continue Bfuaojuf92/4 mg daily Assessment & Plan (08/31/2022 10:11 AM EST): -long-term remission stage of recovery -Recurrence after 1 year (December 2017 - January 2019) of maintenance stage due to postop (TKR on 04/02/19) pain management -OD on 04/22/20. -Detox and CSS at [facility] in Feb 2020May 2020 -Has recovery counselor and is in residential program currently, since May 2020 -Discussed about the importance of harm reduction and OD prevention (Carry Narcan) -Continue Plaxzslt73/4 mg daily Assessment & Plan (07/20/2022 5:13 AM EST): -long-term remission stage of recovery -Recurrence after 1 year (December 2017 - January 2019) of maintenance stage due to postop (TKR on 04/02/19) pain management -OD on 04/22/20. -Detox and CSS at [facility] in Feb 2020, May 2020 -Has recovery counselor and is in residential program currently, since May 2020 -Discussed about the importance of harm reduction and OD prevention (Carry Narcan) -Continue Gdjsovxx74/4 mg daily Depressive disorder 06/26/2017 Polyp of gallbladder 06/26/2017 Post-traumatic osteoarthritis of left knee 06/26 Chronic hepatitis C (CMS/HCC) 05/08/2017 Overview (05/30/2023): took 8 weeks of Harvoni for previously treatment-naive genotype 1a chronic HCV infection with no cirrhosis, moderate fibrosis (F2). 12-week f/u viral load showed low-level viremia of 126 but then a recheck on 02/21/18 showed he has cleared his virus. I recommended another recheck in April, which he did on 05/09/18 and this was negative. History of alcoholism (CMS/HCC) 02/23/2017 Knee pain 02/23/2017 Resolved Problems Problem Noted Date Diagnosed Date Resolved Date Rash 11/23/2022 05/30/2023 Assessment & Plan (11/23/2022 9:53 AM EDT): - irritant dermatitis - avoid irritation - apply hydrocortisone cream Frostbite 08/08/2017 05/30/2023 Hepatitis C antibody test positive 04/27/2017 12/07/2023 Encounters Date Type Department Care Team Description 05/23/2025 Orders Only [facility] [address] [place] [id number] Arun Ledesma RN Uncomplicated opioid dependence (CMS/HCC) (HCC) 05/21/2025 10:00 AM EDT Office Visit [facility] [address] [place] [address] [phone] Ruth Barrios MD Uncomplicated opioid dependence (CMS/HCC) (HCC) (Primary Dx) 05/21/2025 Patient Outreach [facility] [address] [place] [address] [phone] Juan Black RC Recovery Supports 05/21/2025 Travel 05/14/2025 Refill [facility] [address] [place] [address] [phone] Arun Ledesma, NIRALI Uncomplicated opioid dependence (CMS/HCC) (HCC) 05/08/2025 Results Follow-Up [address] [address] Gerry Salter MD Comprehensive Metabolic Panel 05/07/2025 10:15 AM EDT Office Visit [address] [address] Ruth Barrios MD Uncomplicated opioid dependence (CMS/HCC) (HCC) (Primary Dx); Tobacco use 05/07/2025 Orders Only [address] [address] Gerry Salter MD 05/07/2025 Travel 04/28/2025 11:00 AM EDT Office Visit [address] [address] Gerry Salter MD Chronic pain of right knee (Primary Dx); Depressive disorder 04/28/2025 Patient Outreach [address] [address] Gerry Salter MD Care Coordination ([facility] outreach for [facility] housing search-referral completed ) 04/28/2025 Travel 04/25/[address] [address] Lashon Díaz MA CHART PREP 04/23/2025 10:00 AM EDT Office Visit [address] [address] Ruth Barrios MD Uncomplicated opioid dependence (CMS/HCC) (Primary Dx) 04/23/2025 Travel 04/16/[address] [address] Arun Ledesma, NIRALI Uncomplicated opioid dependence (CMS/HCC) 04/09/2025 9:15 AM EDT Office Visit [address] [address] Ruth Barrios MD Uncomplicated opioid dependence (CMS/HCC) (Primary Dx) 04/09/2025 Travel 03/26/2025 9:45 AM EDT Office Visit [address] [address] Ruth Barrios MD Uncomplicated opioid dependence (CMS/HCC) (Primary Dx) 03/26/2025 Travel 03/19/2025 Refill [facility] [address] [place] [address] Arun Ledesma RN Uncomplicated opioid dependence (CMS/HCC) 03/12/2025 10:00 AM EDT Office Visit [facility] [address] [place] [address] Ruth Barrios MD Uncomplicated opioid dependence (CMS/HCC) (Primary Dx) 03/12/2025 Travel from Last 3 Months Immunizations Immunization Administration [...] Date Recorded Patient Health Questionnaire-9 Score 0 05/21/2025 Patient Health Questionnaire-9 Score 0 05/21/2025 Last PHQ-9: Questionnaire Data Not on file 1 Housing Stability Answer Date Recorded What is your housing situation today? I have bessy zuniga 05/21/[address] you li ve. Do you have problems with any of the following? None of the above 05/21/2025 Food Insecurity Answer Date Recorded Within the past 12 months, y ou worried that your food would run out before you got money to buy more: Never True 05/21/2025 Within the past 12 months,th e food you bought just didn't last and you didn't have enough money to get more: Never True Transportation Answer Date Recorded In the past 12 months, has l ack of transportation kept you from medical appts, meetings, work or from getting things needed for daily living? No 05/21/2025 Utilities Answer Date Recorded In the past 12 months, has t he electric, gas, oil or water company threatened to shut off services in your home? No 04/28/2025 Depression Answer Date Recorded Patient Health Questionnaire-2 Score 0 05/21/2025 Internet Access Answer Date Recorded Internet Access Q1 Yes 05/21/2025 Internet Access Q2 Not on file 05/21/2025 Sex and Gender Information Value Date Recorded Sex Assigned at Male 05/30/2022 10:31 AM EDT Legal Sex Male 10:31 AM EDT Gender Identity Male 05/30/2022 10:31 AM EDT Sexual Orientation Straight 05/30/2022 10 :31 AM EDT Last Filed Vital Signs Vital Sign Reading Time Taken Comments Blood Pressure 142/80 04/28/2025 11:00 AM EDT Pulse 76 04/28/2025 11:00 AM EDT Temperature 35.9 C (96.6 F) 04/28/2025 11:00 AM EDT Respiratory Rate 20 04/28/2025 11:00 AM EDT Oxygen Saturation 97% 04/28/2025 11:00 AM EDT Inhaled Oxygen Concentration - - Weight 116 kg (256 lb 6.4 oz) 04/28/2025 11:00 A M EDT Height 177.8 cm (5' 10 ) 04/28/2025 11:00 AM EDT Body Mass Index 36.79 04/28/2025 11:00 AM EDT Plan of Treatment Upcoming Encounters Date Type Department Care Team (Late st Contact Info) Description 06/04/2025 10:00 AM EST Office Visit [facility] [address] [place], [place] [phone] Ruth Barrios MD [address] [place], [place] [phone] 06/18/2025 10:15 AM EST Office Visit [facility] [address] [place], [place] [phone] Ruth Barrios MD [address] [place] [address] Health Maintenance Due Date Last Done Comments CT Colonography 1965 Colonoscopy 1965 Colorectal Cancer Screening 1965 FIT DNA/Cologuard 1965 FIT 1965 FOBT 1965 Sigmoidoscopy 1965 Zoster Vaccines (1 of 2) 2015 Pneumococcal Vaccine: 50+ Years (2 of 2 - PCV) 06/26/2018 06/26/2017 COVID-19 Vaccine ( season) 2025 09/01/2021, 09/08/2020, 08/15/2020 Influenza Vaccine (#1) 2025 , 05/20/2020, 04/24/2019, Additional history exists Disability Screening 04/28/2026 04/28/2025 Tobacco Screening 04/28/2026 04/28/2025 Alcohol/Substance Use Screening 05/21/2026 05/21/2025 Depression Screening 05/21/2026 05/21/2025, 05/21/20 25 SDOH Screening 05/21/2026 05/21/2025 DTaP/Tdap/Td Vaccines (2 - Td or Tdap) [...] stage from opioid use disorder General On track(05/21/20 11:27 AM EDT) Yes Ruth Barrios MD Quit using tobacco (cigarettes, smokeless, etc) Tobacco Use No change( 11:27 AM EDT) No Ruth Barrios MD Note: 1.5 cigs per day on 10/23/24 1 cig day on 03/12/25 Procedures Procedure Name Priority Date/Time Associated Diagnosis Comments POCT GABI-14 URINE DRUG SCREEN Routine 05/07/2025 9:24 AM EDT Uncomplicated opioid dependence (CMS/HCC) (HCC) COMPREHENSIVE METABOLIC PANEL Routine 05/07/2025 8:55 AM EDT POCT GABI-14 URINE DRUG SCREEN Routine 04/09/2025 9:15 AM EDT Uncomplicated opioid dependence (CMS/HCC) POCT GABI-14 URINE DRUG SCREEN Routine 03/12/2025 9:06 AM EDT Uncomplicated opioid dependence (CMS/HCC) HIV 1/2 ANTIGEN/ANTIBODY, FOURTH GENERATION W/RFL Routine 11/02/2022 9:00 AM EDT Uncomplicated opioid dependence (CMS/HCC) Routine screening for STI (sexually transmitted infection) LIPID PANEL, STANDARD Routine 08/31/2022 11:38 AM EST Screening for cholesterol level from Last 3 Months or Most Recently Relevant to Health Maintenance Results * (ABNORMAL) POCT GABI-14 Urine Drug Screen (05/07/2025 9:24 AM EDT) Only the most recent of3 resultswithin the time period is included. THC Negative Negative Cocaine Screen, Urine Negative Negative Opiate Screen, Urine Negative Negative Methamphetamine Screen Urine Negative Negative Amphetamine Screen, Urine Negative Negative Benzodiazepines Screen, Urine Negative Negative Barbiturate Screen, Urine Negative Negative Methadone Screen, Urine Negative Negative Buprenophine Screen, Urine Positive(A) Negative TCA, Urine Negative Negative MDMA Urine Negative Negative ng/mL Oxycodone Screen, Urine Negative Negative Phencyclidine (PCP), Urine Negative Negative Fentanyl, Urine Negative Negative Urine Urine specimen obtained by clean catch procedure / Unknown 05/07/2025 9:24 AM EDT Ruth Barrios MD POINT OF CARE TEST ENTER/EDIT OR DERABLES Final Result * (ABNORMAL) Comprehensive Metabolic Panel (05/07/2025 8:55 AM EDT) Pathologist [facility] Sodium 141 135 - 145 mmol/L [facility] Potassium 4.4 3.3 - 5.1 mmol/L [facility] Comment:Slight Hemolysis.Int erpret result with caution. Chloride 104 96 - 108 mmol/L [facility] Carbon Dioxide 31(H) 22 - 29 mmol/L [facility] Anion Gap 10(L) 12 - 20 [facility] Urea Nitrogen (BUN) 19(H) 9 - 16 mg/dL [facility] Creatinine, Serum 1.00 0.5 - 1.4 mg/dL [facility] Estimated Glomerular Filt Rate >60 [facility] Comment:Chronic Kidney Disea se: Estimated GFR < 60 mL/min/1.97v8Uuachj Kidney Disease: Estimated GFR < 15 mL/min/1.73m2 Glucose 167(H) 60 - 115 mg/dL [facility] Calcium 9.3 8.4 - 10.2 mg/dL [facility] Bilirubin, Total 0.3 0.0 - 1.0 mg/dL [facility] Aspartate Amino Transferase 53(H) 5 - 37 U/L [facility] Comment:Slight Hemolysis.Int erpret result with caution. Alanine Aminotransferase 37 0 - 40 U/L [facility] Total Protein 8.2(H) 6.5 - 8.0 g/dL [facility] Albumin Level 4.8 3.5 - 5.0 g/dL [facility] Alkaline Phosphatase 72 39 - 117 U/L [facility] 05/07/2025 8:55 AM EDT 05/07/2025 11:37 AM EDT us Gerry Salter MD LAB BLOOD ORDERABLES Final Resul t [facility] [address] [place] [address] [phone] * HIV-1/2 Antigen and Antibodies, Fourth Generation, with Reflexes (11/02/2022 9:00 AM EDT) Pathologist [facility] HIV Antigen/Antibody, 4th Generation NON-REAC TIVE NON-REAC TIVE [facility] Comment: HIV-1 antigen and HIV-1/HIV-2 antibodies were [...] purpose. For additional information please refer to http://education.ticketea.KnowledgeMill/faq/OFW364 (This link is being provided for informational/ [...] ORDERABLES Final Resul t Performing Organization Address [facility]/ZIP Co de Phone Number [facility] [address], [place] [address] [facility] [address] [place] [address] * (ABNORMAL) Lipid Panel, Standard (08/31/2022 11:38 AM EST) Cholesterol, Total 181 <200 mg/dL [facility] HDL Cholesterol 39(L) > OR = 40 mg/dL [facility] Triglycerides 108 <150 mg/dL [facility] LDL Cholesterol 120(H) mg/dL (calc) [facility] Comment: Reference range: <100 Desirable range <100 mg/dL for primary prevention; <70 mg/dL for patients with CHD or diabetic patients with > or = 2 CHD risk factors. LDL-C is now calculated using the Braeden-George calculation, which is a validated novel method providing better accuracy than the Friedewald equation in the estimation of LDL-C. Braeden SCHAFER et al. SAPPHIRE. 2013;310(19): 5003-7878 (http://education.[employer].KnowledgeMill/faq/YQL640) Chol/HDLC Ratio 4.6 <5.0 (calc) [facility] Non-HDL Cholesterol 142(H) <130 mg/dL (calc) [facility] Comment: For patients with diabetes plus 1 [...] ORDERABLES Final Resul t Performing Organization Address City/[facility]/ZIP Co de Phone Number [facility] [address], [place] [address] [facility] [address] [facility], ([address]) [place] [address] from Last 3 Months or Most Recently Relevant to Health Maintenance Insurance C3 Care Teams Health Information Clerk Relationship Specialty Start Date End Date Name, MD Gerry [address] [place] [address] PCP - General Family Medicine 02/16/17
--- OUTSIDE RECORDS SUMMARY | 2025-06-04 08:23 | XMS_ITS | Encounter Summary ---
Author Organization [employer] Address [address] [place] [address] 7 [place] [address] Care Team Providers Care Emergency Planner Name Role Phone Name, Gerry ANDERSON Primary Care Provider [phone] Encounter Details Date Type Department Care Team ([facility] st Contact Info) Description 02/02/2024 Orders Only [facility] [address] [place], [place] [phone] Ruth Barrios MD [address] [place], [place] [phone] Social History Tobacco Use Types Packs/Day Years [...] with others, in a hotel, in a retirement, living outside on the street, on a [...] Description 06/04/2025 10:00 AM EST Office Visit [address] [address] Ruth Barrios MD [address] [place] [phone] 06/18/2025 10:15 AM EST Office Visit [address] [address] Ruth Barrios MD [address] [place] [phone] documented as of this encounter Procedures Procedure Name Priority Date/Time Associated Diagnosis Comments HOLD GREEN GEL Routine 10/09/2024 8:40 AM EDT documented in this encounter Results * Hold Green Gel (10/09/2024 8:40 AM EDT) Hold Green Gel See Note [facility] Comment:Specimen held untest ed for 24 hours; Call to requestChemistry testing. 10/09/2024 8:40 AM EDT 10/09/2024 11:49 AM EDT us Gerry Salter MD HISTORICAL/NON ORDERABLE LABS Fi nal Result [facility] [address] [place] [address] [phone] documented in this encounter Visit Diagnoses Not on filedocumented in this encounter Additional Health Concerns Assessment Noted Time PHQ-9 Depression Total Score: 0 01/20/20 23 10:35 AM EDT documented as of this encounter Care Teams Emergency Planner Relationship Specialty Start Date End Date Name, MD Gerry [address] [place] [address] PCP - General Family Medicine 02/16/17 documented as of this encounter
[2025-06-04 11:53] LABS: Alanine Aminotransferase 28 U/L (0-40); Albumin Level 4.6 g/dL (3.5-5.0); Alkaline Phosphatase 70 U/L (39-117); Aspartate Amino Transferase 36 U/L (5-37); Total Protein 7.9 g/dL (6.5-8.0)
[2025-06-05 07:47] LABS: Syphilis Screen Nonreactive (Nonreactive)
[2025-06-05 08:04] LABS: HBS Num1 > 1000.00 mIU/mL (0-7.99); HBc Num1 0.56 S/CO (0.00-0.79); HBsAGNum1 0.46 S/CO (0.00-0.99); HIV Num 1 0.06 S/CO (0.00-0.99); Hepatitis B Surface Antigen Negative (Negative); ~Hepatitis B Surface Antibody REACTIVE (Nonreactive)
[2025-06-05 16:48] LABS: HCV Log PCR <1.18 NOT DETECTED Log IU/mL (NOT DETECTED); HepC Viral Load <15 NOT DETECTED IU/mL (NOT DETECTED)
[2025-06-06 08:08] LABS: ~Hepatitis A Antibody IgG 7.48 S/CO (0.00-0.99)
[2025-06-07 03:39] LABS: TS Negative Control Passed; TS Panel A 0; TS Panel B 1; TS Positive Control Passed; TSpotTB Negative (Negative)
== END 2025-06-04 08:17 | disposition home or self-care (01) ==
LOC: HO.HHCL 08:16
PROVIDERS: PCP Internal Medicine Geriatric Medicine; Referring Provider Family Medicine; Visit Provider Internal Medicine Geriatric Medicine
DX: Z11.59 Encounter for screening for other viral diseases (principal); Z11.4 Encounter for screening for human immunodeficiency virus [HIV]; Z11.1 Encounter for screening for respiratory tuberculosis; R73.9 Hyperglycemia, unspecified; F11.20 Opioid dependence, uncomplicated
CPT/HCPCS: 36415; 80076; 83036; 86481; 86704; 86706; 86708; 86780; 87340; 87389; 87522

== ENCOUNTER 2025-06-30 09:39 | Outpatient (REF) | payer MEDICAID, SELFPAY ==
--- NOTE | ~2025-06-30 | XR_ITS ---
EXAMINATION: XR KNEE, RIGHT CLINICAL INFORMATION: M17.11 - Unilateral primary osteoarthritis, right knee COMPARISON: X-ray 12/15/2023 . X-ray left knee 10/08/2019 TECHNIQUE: Two views of the right knee. AP bilateral knees one view FINDINGS: Right knee: Mild medial compartment joint space narrowing. No acute fracture or dislocation. No suspicious bony lesion. Small suprapatellar joint fluid. No abnormal soft tissue calcification. Left knee: Knee arthroplasty with expected position and alignment. No acute periprosthetic fracture. No suspicious perihardware lucency. XR/XR knee RT 3V IMPRESSION: Right knee: Medial compartment arthritis Small effusion Electronically signed by: Kurtis Dasilva MD 07/01/2025 01:04 PM LIZETH MONZON
--- OUTSIDE RECORDS SUMMARY | 2025-07-02 10:00 | XMS_ITS | Encounter Summary ---
Author Organization [employer] Address [address] [place] [address] [address] [place] [address] Care Team Providers Care Crew Foreman Name Role Phone Name, Gerry ANDERSON Primary Care Provider [phone] Reason for Visit * Reason Comments OBAT follow-up Encounter Details Date Type Department Care Team (Latest Contact Info) Description 07/02/2025 10:00 AM EST Clinical Support [facility] [address] [place] [address] Arun Ledesma RN [address] [place] [address] Uncomplicated opioid dependence (CMS/HCC) ([facility]) Social History Tobacco Use Types Packs/Day Years [...] of this encounter Progress Notes * Arun Ledesma RN - 07/02/2025 10:00 AM EST Edmund Florence is a 59 y.o. male who presents for OBAT RV. Patient is on current Suboxone dose of 24/6 mg on a 2 week schedule, 4 week Rx. Pt has been in the program for 7 years, 9 months. Induction date: 08/23/17. Patient is connected to Nel Omar and Dr Hickey Omar for behavioral health service. PHARMACEUTICAL SALES SPECIALIST reviewed by provider. Tobaccco: smoking 1 cig/day 05/21/25 (1.5 cigarettes/day on 12/18/24, 2 cigs per day 09/2024, 5-7 cigs per day 11/2023) LFTs: due 01/29/2026 STI / TB screening: due October 2023. IZ: Hep A immune; Hep B IZ completed, Hep A and B immunity confirmed in May 2025 PCP: Dr. Salter, last seen 04/28/25. Referred to orthopedist for right knee pain. Last visit: 06/18/2025 UTOX bup only He said he forgot his goodies for people today. He said he was in a hurry to come here. He now has to go to see his brother to get Pasteles for Thanksgiving dinner with his housemates. He wants to come to the lunch this Monday, but he states he cannot arrange a transportation. Today 07/02/25 Utox not requested Edmund seen today for follow up for opioid use disorder. Reports doing well. Going to meet with housing after this. Smoking 1 cigarette/day. Wearing a knee brace on his R knee and reports he got an injection yesterday. No concerns with Suboxone. Happy to have celebrated 5 years in recovery. Plan: Suboxone dosing schedule of 24/6 mg [...] except as provided at 2.12??(5) and 2.65. documented in this encounter Plan of Treatment Upcoming Encounters Date Type Department Care Team (Late st Contact Info) Description 07/16/2025 9:15 AM EST Office Visit [facility] [address] [place] [address] Ruth Barrios MD [address] [place] [address] documented as of this encounter Goals Goal Patient Goal Type Associated Problems Recent Progress Patient-Stated? Author Maintaining remission stage from opioid use disorder General On track(07/02/20 8:47 AM EST) Yes Ruth Barrios MD Quit using tobacco (cigarettes, smokeless, etc) Tobacco Use On track(07/02/20 8:47 AM EST) No Ruth Barrios MD Note: 1.5 cigs per day on 10/23/24 1 cig day on 03/12/25 documented as of this encounter Visit Diagnoses Diagnosis Uncomplicated opioid dependence (CMS/HCC) (HCC) documented in this encounter Additional Health Concerns Assessment Noted Time PHQ-9 Depression Total Score: 0 05/21/20 9:11 AM EDT documented as of this encounter Care Teams Crew Foreman Relationship Specialty Start Date End Date Name, MD Gerry [address] [place] [address] PCP - General Family Medicine 02/16/17 documented as of this encounter
--- OUTSIDE RECORDS SUMMARY | 2025-07-03 11:05 | XMS_ITS | Encounter Summary ---
Author Organization [employer] Address [address] [place] [address] [address] [place] [address] Care Team Providers Care Press Department Manager Name Role Phone Name, Gerry ANDERSON Primary Care Provider [phone] Reason for Visit * Reason Comments Med Refill Encounter Details Date Type Department Care Team ([facility] st Contact Info) Description 06/30/2025 Refill [facility] [address] [place], [place] [phone] Name, MD Gerry [address] [place] [address] Chronic pain of left knee Social History [...] Description 07/16/2025 9:15 AM EST Office Visit [facility] [address] [place] [phone] Ruth Barrios MD [address] [place] [address] documented as of this encounter Goals Goal [...] documented as of this encounter Care Teams Press Department Manager Relationship Specialty Start Date End Date Name, MD Gerry [address] [place] [address] PCP - General Family Medicine 02/16/17 documented as of this encounter
--- OUTSIDE RECORDS SUMMARY | 2025-07-03 11:05 | XMS_ITS | Clinical Summary ---
Author Organization [employer] Address [address] [place] [address] [address] [place] [address] Care Team Providers Care Integrated Campaign Manager Name Role Phone Name, Gerry ANDERSON Primary Care Provider [phone] Allergies No known active allergies Medications * This document contains information received from the source organization and may not represent a complete record from that organization. atorvastatin (Lipitor) 20 MG tablet 01/22/20 22 Active cloNIDine (Catapres) 0.1 MG tablet Active Diclofenac Sodium 1 % gel 12/11/19 22 Active fish oil concentrate ([place]-3) 1000 MG capsule 11/16/19 19 Active hydrocortisone [...] needed 168 lozenge 1 11/24/19 23 Active hydrOXYzine HCl (Atarax) 25 MG tabletIndicatio [...] mouth Once per day. 60 tablet 11 04/28/20 25 026 Active omeprazole (PriLOSEC) [address] capsule take 1 capsule by oral route every day 30 minutes to 1 hour before a meal 30 capsule 04/28/20 25 Active Buprenorphine HCl-Naloxone HCl (Suboxone) 8-2 MG SL filmIndications :Uncomplicated opioid dependence (CMS/HCC) ([facility]LY [facility]) Place 1 Film under the tongue 3 times daily. 84 Film 5 10:21 AM EST 06/12/20 25 025 Active ibuprofen 800 MG tabletIndicatio ns:Chronic pain of left knee TAKE 1 TABLET BY MOUTH THREE TIMES DAILY WITH FOOD 90 tablet 1 5 8:16 AM EST 07/01/20 25 Active ibuprofen 800 MG tabletIndicatio ns:Chronic pain of left knee TAKE 1 TABLET BY MOUTH THREE TIMES DAILY WITH FOOD 90 tablet 1 01/16/20 25 025 Discontinued Buprenorphine HCl-Naloxone HCl (Suboxone) 8-2 MG SL filmIndications :Uncomplicated opioid dependence (CMS/HCC) ([facility]) Place 1 Film under the tongue 3 [...] -OD on 04/22/20. -Detox and CSS at [facility] in Feb 2020, May 2020 -Has [...] -OD on 04/22/20. -Detox and CSS at [facility] in Feb 2020May 2020 -Has recovery [...] -OD on 04/22/20. -Detox and CSS at [facility] in Feb 2020May 2020 -Has recovery [...] -OD on 04/22/20. -Detox and CSS at [facility] in Feb 2020May 2020 -Has recovery [...] -OD on 04/22/20. -Detox and CSS at [facility] in Feb 2020May 2020 -Has recovery [...] -OD on 04/22/20. -Detox and CSS at [facility] in Feb 2020May 2020 -Has recovery [...] -OD on 04/22/20. -Detox and CSS at [facility] in Feb 2020May 2020 -Has recovery [...] -OD on 04/22/20. -Detox and CSS at [facility] in Feb 2020May 2020 -Has recovery [...] -OD on 04/22/20. -Detox and CSS at [facility] in Feb 2020May 2020 -Has recovery [...] -OD on 04/22/20. -Detox and CSS at [facility] in Feb 2020May 2020 -Has recovery counselor [...] -OD on 04/22/20. -Detox and CSS at [facility] in Feb 2020May 2020 -Has recovery counselor [...] -OD on 04/22/20. -Detox and CSS at [facility] in Feb 2020May 2020 -Has recovery [...] -OD on 04/22/20. -Detox and CSS at [facility] in Feb 2020May 2020 -Has recovery [...] -OD on 04/22/20. -Detox and CSS at [facility] in Feb 2020May 2020 -Has recovery [...] -OD on 04/22/20. -Detox and CSS at [facility] in Feb 2020May 2020 -Has recovery counselor and is in residential program currently, since May 2020 -Overdose risk: intermediate. Risk factors - decreased tolerance; history of overdose (but not recent) -Co-prescription of high-risk medications: none -Discussed about the importance of harm reduction and OD prevention -Continue Utskauic45/4 mg daily Assessment & Plan (08/14/2024 5:18 AM EST): -long-term remission stage of recovery -Recurrence after 1 year (December 2017 - January 2019) of maintenance stage due to postop (TKR on 04/02/19) pain management -OD on 04/22/20. -Detox and CSS at [facility] in Feb 2020May 2020 -Has recovery counselor and is in residential program currently, since May 2020 -Overdose risk: Average. -Co-prescription of high-risk medications: none -Discussed about the importance of harm reduction and OD prevention -Continue Timdssxl31/4 mg daily Assessment & Plan (07/17/2024 5:55 AM EST): -long-term remission stage of recovery -Recurrence after 1 year (December 2017 - January 2019) of maintenance stage due to postop (TKR on 04/02/19) pain management -OD on 04/22/20. -Detox and CSS at [facility] in Feb 2020May 2020 -Has recovery counselor and is in residential program currently, since May 2020 -Overdose risk: Average. -Co-prescription of high-risk medications: none -Discussed about the importance of harm reduction and OD prevention -Continue Ukhvpkqi20/4 mg daily Assessment & Plan (07/03/2024 10:33 AM EST): -long-term remission stage of recovery -Recurrence after 1 year (December 2017 - January 2019) of maintenance stage due to postop (TKR on 04/02/19) pain management -OD on 04/22/20. -Detox and CSS at [facility] in Feb 2020May 2020 -Has recovery counselor and is in residential program currently, since May 2020 -Overdose risk: Average. -Co-prescription of high-risk medications: none -Discussed about the importance of harm reduction and OD prevention -Continue Wbucppwb40/4 mg daily Assessment & Plan (05/07/2024 10:17 PM EDT): -long-term remission stage of recovery -Recurrence after 1 year (December 2017 - January 2019) of maintenance stage due to postop (TKR on 04/02/19) pain management -OD on 04/22/20. -Detox and CSS at [facility] in Feb 2020May 2020 -Has recovery counselor and is in residential program currently, since May 2020 -Overdose risk: Average. -Co-prescription of high-risk medications: none -Discussed about the importance of harm reduction and OD prevention -Continue Fyzzigdg97/4 mg daily Assessment & Plan (01/03/2024 5:00 AM EDT): -long-term remission stage of recovery -Recurrence after 1 year (December 2017 - January 2019) of maintenance stage due to postop (TKR on 04/02/19) pain management -OD on 04/22/20. -Detox and CSS at [facility] in Feb 2020May 2020 -Has recovery counselor and is in residential program currently, since May 2020 -Overdose risk: Average. -Co-prescription of high-risk medications: none -Discussed about the importance of harm reduction and OD prevention -Continue Nlbbkcls46/4 mg daily Assessment & Plan (12/20/2023 5:20 AM EDT): -long-term remission stage of recovery -Recurrence after 1 year (December 2017 - January 2019) of maintenance stage due to postop (TKR on 04/02/19) pain management -OD on 04/22/20. -Detox and CSS at [facility] in Feb 2020May 2020 -Has recovery counselor and is in residential program currently, since May 2020 -Overdose risk: Average. -Co-prescription of high-risk medications: none -Discussed about the importance of harm reduction and OD prevention -Continue Mhkeoadj24/4 mg daily Assessment & Plan (12/06/2023 10:25 AM EDT): -long-term remission stage of recovery -Recurrence after 1 year (December 2017 - January 2019) of maintenance stage due to postop (TKR on 04/02/19) pain management -OD on 04/22/20. -Detox and CSS at [facility] in Feb 2020May 2020 -Has recovery counselor and is in residential program currently, since May 2020 -Overdose risk: Average. -Co-prescription of high-risk medications: none -Discussed about the importance of harm reduction and OD prevention -Continue Mwfdzetn89/4 mg daily Assessment & Plan (11/21/2023 11:06 PM EDT): -long-term remission stage of recovery -Recurrence after 1 year (December 2017 - January 2019) of maintenance stage due to postop (TKR on 04/02/19) pain management -OD on 04/22/20. -Detox and CSS at [facility] in Feb 2020May 2020 -Has recovery counselor and is in residential program currently, since May 2020 -Overdose risk: Average. -Co-prescription of high-risk medications: none -Discussed about the importance of harm reduction and OD prevention -Continue Tjswumly66/4 mg daily Assessment & Plan (11/08/2023 5:23 AM EDT): -long-term remission stage of recovery -Recurrence after 1 year (December 2017 - January 2019) of maintenance stage due to postop (TKR on 04/02/19) pain management -OD on 04/22/20. -Detox and CSS at [facility] in Feb 2020May 2020 -Has recovery counselor and is in residential program currently, since May 2020 -Overdose risk: Average. -Co-prescription of high-risk medications: none -Discussed about the importance of harm reduction and OD prevention -Continue Vhdqzugy13/4 mg daily Assessment & Plan (10/25/2023 5:11 AM EDT): -long-term remission stage of recovery -Recurrence after 1 year (December 2017 - January 2019) of maintenance stage due to postop (TKR on 04/02/19) pain management -OD on 04/22/20. -Detox and CSS at [facility] in Feb 2020May 2020 -Has recovery counselor and is in residential program currently, since May 2020 -Overdose risk: Average. -Co-prescription of high-risk medications: none -Discussed about the importance of harm reduction and OD prevention -Continue Ksvrossy21/4 mg daily Assessment & Plan (10/11/2023 10:04 AM EDT): -long-term remission stage of recovery -Recurrence after 1 year (December 2017 - January 2019) of maintenance stage due to postop (TKR on 04/02/19) pain management -OD on 04/22/20. -Detox and CSS at [facility] in Feb 2020May 2020 -Has recovery counselor and is in residential program currently, since May 2020 -Overdose risk: Average. -Discussed about the importance of harm reduction and OD prevention -Continue Fgumcqlj70/4 mg daily Assessment & Plan (09/12/2023 5:04 PM EST): -long-term remission stage of recovery -Recurrence after 1 year (December 2017 - January 2019) of maintenance stage due to postop (TKR on 04/02/19) pain management -OD on 04/22/20. -Detox and CSS at [facility] in Feb 2020May 2020 -Has recovery counselor and is in residential program currently, since May 2020 -Overdose risk: Average. -Discussed about the importance of harm reduction and OD prevention -Continue Batejdfw95/4 mg daily Assessment & Plan (07/18/2023 10:50 PM EST): -long-term remission stage of recovery -Recurrence after 1 year (December 2017 - January 2019) of maintenance stage due to postop (TKR on 04/02/19) pain management -OD on 04/22/20. -Detox and CSS at [facility] in Feb 2020May 2020 -Has recovery counselor and is in residential program currently, since May 2020 -Overdose risk: Average. -Discussed about the importance of harm reduction and OD prevention -Continue Hudhpzaj27/4 mg daily Assessment & Plan (06/07/2023 5:32 AM EST): -long-term remission stage of recovery -Recurrence after 1 year (December 2017 - January 2019) of maintenance stage due to postop (TKR on 04/02/19) pain management -OD on 04/22/20. -Detox and CSS at [facility] in Feb 2020May 2020 -Has recovery counselor and is in residential program currently, since May 2020 -Overdose risk: Average. -Discussed about the importance of harm reduction and OD prevention -Continue Ihrtggja05/4 mg daily Assessment & Plan (05/09/2023 10:19 PM EDT): -long-term remission stage of recovery -Recurrence after 1 year (December 2017 - January 2019) of maintenance stage due to postop (TKR on 04/02/19) pain management -OD on 04/22/20. -Detox and CSS at [facility] in Feb 2020May 2020 -Has recovery counselor and is in residential program currently, since May 2020 -Overdose risk: Average. -Discussed about the importance of harm reduction and OD prevention -Continue Vfnvimba24/4 mg daily Assessment & Plan (11/23/2022 9:48 AM EDT): -long-term remission stage of recovery -Recurrence after 1 year (December 2017 - January 2019) of maintenance stage due to postop (TKR on 04/02/19) pain management -OD on 04/22/20. -Detox and CSS at [facility] in Feb 2020May 2020 -Has recovery counselor and is in residential program currently, since May 2020 -Discussed about the importance of harm reduction and OD prevention (Carry Narcan) -Continue Jiwdyizr29/4 mg daily Assessment & Plan (11/09/2022 10:59 AM EDT): -long-term remission stage of recovery -Recurrence after 1 year (December 2017 - January 2019) of maintenance stage due to postop (TKR on 04/02/19) pain management -OD on 04/22/20. -Detox and CSS at [facility] in Feb 2020May 2020 -Has recovery counselor and is in residential program currently, since May 2020 -Discussed about the importance of harm reduction and OD prevention (Carry Narcan) -Continue Oesmmseg37/4 mg daily Assessment & Plan (10/26/2022 4:05 PM EDT): -long-term remission stage of recovery -Recurrence after 1 year (December 2017 January 2019) of maintenance stage due to postop (TKR on 04/02/19) pain management -OD on 04/22/20. -Detox and CSS at [facility] in Feb 2020May 2020 -Has recovery counselor and is in residential program currently, since May 2020 -Discussed about the importance of harm reduction and OD prevention (Carry Narcan) -Continue Humxgupq17/4 mg daily Assessment & Plan (09/14/2022 9:53 AM EST): -long-term remission stage of recovery -Recurrence after 1 year (December 2017 - January 2019) of maintenance stage due to postop (TKR on 04/02/19) pain management -OD on 04/22/20. -Detox and CSS at [facility] in Feb 2020May 2020 -Has recovery counselor and is in residential program currently, since May 2020 -Discussed about the importance of harm reduction and OD prevention (Carry Narcan) -Continue Ddydklyv73/4 mg daily Assessment & Plan (08/31/2022 10:11 AM EST): -long-term remission stage of recovery -Recurrence after 1 year (December 2017 - January 2019) of maintenance stage due to postop (TKR on 04/02/19) pain management -OD on 04/22/20. -Detox and CSS at [facility] in Feb 2020May 2020 -Has recovery counselor and is in residential program currently, since May 2020 -Discussed about the importance of harm reduction and OD prevention (Carry Narcan) -Continue Cosakpic10/4 mg daily Assessment & Plan (07/20/2022 5:13 AM EST): -long-term remission stage of recovery -Recurrence after 1 year (December 2017 - January 2019) of maintenance stage due to postop (TKR on 04/02/19) pain management -OD on 04/22/20. -Detox and CSS at [facility] in Feb 2020May 2020 -Has recovery counselor and is in residential program currently, since May 2020 -Discussed about the importance of harm reduction and OD prevention (Carry Narcan) -Continue Yniwrhqb45/4 mg daily Depressive disorder 06/26/2017 Polyp of [...] and this was negative. History of alcoholism ([facility]) 02/23/2017 Knee pain 02/23/2017 Resolved Problems Problem Noted Date Diagnosed Date Resolved Date Rash 11/23/2022 05/30/2023 Assessment & Plan (11/23/2022 9:53 AM EDT): - irritant dermatitis - avoid irritation - apply hydrocortisone cream Frostbite 08/08/2017 05/30/2023 Hepatitis C antibody test positive 04/27/2017 12/07/2023 Encounters Date Type Department Care Team Description 07/02/2025 10:00 AM EST Clinical Support [facility] [address] [place] [id number] Arun Ledesma, NIRALI Uncomplicated opioid dependence ([facility]/HCC) ([facility]) 06/30/2025 Refill [facility] [address] [place] [id number] Gerry Salter MD Chronic pain of left knee 06/18/2025 10:15 AM EST Office Visit [facility] [address] [place] [id number] Ruth Barrios MD Uncomplicated opioid dependence ([facility]/HCC) ([facility]) (Primary Dx); Tobacco use 06/18/2025 Travel 06/11/2025 Refill [facility] [address] [place] [address] Arun Ledesma RN Uncomplicated opioid dependence ([facility]/HCC) ([facility]) 06/04/2025 10:00 AM EST Office Visit [facility] [address] [place] [phone] Ruth Barrios MD Uncomplicated opioid dependence (CMS/HCC) ([facility]) (Primary Dx); Encounter for vaccination; Encounter for immunization 06/04/2025 Orders Only [facility] [place] [address] Ruth Barrios MD 06/04/2025 Travel 05/23/2025 Orders Only [place] [address] Arun Ledesma RN Uncomplicated opioid dependence (CMS/HCC) (HCC) 05/21/2025 10:00 AM EDT Office Visit [facility] [place] [address] Ruth Barrios MD Uncomplicated opioid dependence (CMS/HCC) (HCC) (Primary Dx) 05/21/2025 Patient Outreach [facility] [place] [address] Juan Black Recovery Supports 05/21/2025 Travel 05/14/2025 Refill [facility] [place] [address] Arun Ledesma RN Uncomplicated opioid dependence (CMS/HCC) (HCC) 05/08/2025 Results Follow-Up [facility] [place] [address] Gerry Salter MD Comprehensive Metabolic Panel 05/07/2025 10:15 AM EDT Office Visit [facility] [place] [address] Ruth Barrios MD Uncomplicated opioid dependence (CMS/HCC) (HCC) (Primary Dx); Tobacco use 05/07/2025 Orders Only [facility] [place] [address] Gerry Salter MD 05/07/2025 Travel 04/28/2025 11:00 AM EDT Office Visit [facility] [place] [address] Gerry Salter MD Chronic pain of right knee (Primary Dx); Depressive disorder 04/28/2025 Patient Outreach [facility] [place] [address] Gerry Salter MD Care Coordination ([facility] outreach for SDOH housing search-referral completed ) 04/28/2025 Travel 04/25/2025 Telephone [facility] [place] [address] Lashon Díaz [place] CHART PREP 04/23/2025 10:00 AM EDT Office Visit [facility] [address] [place] [address] Ruth Barrios MD Uncomplicated opioid dependence ([facility]/HCC) (Primary Dx) 04/23/2025 Travel 04/16/2025 Refill [facility] [address] [place] [address] Arun Ledesma RN Uncomplicated opioid dependence (CMS/HCC) 04/09/2025 9:15 AM EDT Office Visit [facility] [address] [place] [address] Ruth Barrios MD Uncomplicated opioid dependence ([facility]/HCC) (Primary Dx) 04/09/2025 Travel from Last 3 [...] Description 07/16/2025 9:15 AM EST Office Visit [facility] [address] [place] [address] Ruth Barrios MD [address] [place] [address] Health Maintenance Due Date Last Done Comments [...] Additional history exists HIV Screening Completed 06/04/2025, 0411/2022, 09/25/2020, Additional history exists Influenza Vaccine Completed [...] 8:21 AM EST) Syphilis Screen Nonreactive Nonreactive [facility] 06/04/2025 8:21 AM EST 06/04/2025 11:03 AM EST us Ruth Barrios MD LAB BLOOD ORDERABLES Final Resul t [facility] [address] [place] [address] [phone] * T-SPOT??.TB (06/04/2025 8:21 AM EST) T Spot TB Negative Negative [facility] Comment:A negative test resu lt does [...] as aquantitative test. TS PANEL A 0 [facility] TS PANEL B 1 [facility] Negative Control Passed [facility] Positive Control Passed [facility] Comment:For additional infor mation, please refer tohttp://education.[facility]/faq/YWE527(This link is being provided for informational/educational purposes only.)THIS TEST WAS PERFORMED AT:[facility] [id number] [place] [id number] LUX MD,PHD 06/04/2025 8:21 AM EST 06/04/2025 11:03 AM EST Ruth Barrios MD LAB BLOOD ORDERABLES Final Resul t Performing Organization Address [facility] Co de Phone Number [facility] [address] [place] [phone] * Hepatitis C Viral RNA, Quantitative, Real-Time PCR (06/04/2025 8:21 AM EST) Hepatitis C Viral Load <15 NOT DETECTED NOT DETECTED IU/mL [facility] HCV Log PCR <1.18 NOT DETECTED NOT DETECTED Log IU/mL [facility] Comment:For additional infor matdianne, please refer tohttp://education.[facility]/faq/DZK88k4(This link is being provided for informational/educational purposes only.)THIS TEST WAS PERFORMED AT:[facility] [place] [id number] RALPH MD 06/04/2025 8:21 AM EST 06/04/2025 11:03 AM EST Ruth Barrios MD LAB BLOOD ORDERABLES Final Resul t Performing Organization Address [facility] Phone Number [facility] [address] [place] [phone] * Hepatitis A Antibody, Total (06/04/2025 8:21 AM EST) Pathologist [facility] Hepatitis A Antibody IgG REACTIVE Nonreactive [facility] Comment:The presence of IgG anti-HAV implies past HAV infection(recent or distant) or vaccination against HAV. 06/04/2025 8:21 AM EST 06/04/2025 11:03 AM EST Ruth Barrios MD LAB BLOOD ORDERABLES Final Resul t Performing Organization Address [facility] Co de Phone Number [facility] [address] [place] [phone] * Hepatitis B surface antigen, EIA (06/04/2025 8:21 AM EST) Hepatitis B Surface Ag Negative Negative [facility] 06/04/2025 8:21 AM EST 06/04/2025 11:03 AM EST Ruth Barrios MD LAB BLOOD ORDERABLES Final Resul t Performing Organization Address [facility] Co de Phone Number [facility] [address] [place] [phone] * Hepatitis B Core Antibody, Total (06/04/2025 8:21 AM EST) Hepatitis B Core Antibody Nonreactive Nonreactive [facility] 06/04/2025 8:21 AM EST 06/04/2025 11:03 AM EST Ruth Barrios MD LAB BLOOD ORDERABLES Final Resul t Performing Organization Address [facility] de Phone Number [facility] [address] [place] [phone] * HIV-1/2 Antigen and Antibodies, Fourth Generation, with Reflexes (06/04/2025 8:21 AM EST) HIV AB/AG Nonreactive Nonreactive [facility] Comment:HIV-1 p24 Ag and/or HIV-1/HIV-2 Ab not detected.A test result that is nonreactive does not exclude thepossibility of exposure to or infection with HIV-1 and/orHIV-2. Nonreactive results in this assay for individualswith prior exposure to HIV-1 and/or HIV-2 may be due toantigen and antibody levels that are below the limit ofdetection of this assay.The [employer] HIV Ag/Ab Combo assay result andsupplemental assay results should be interpreted inconjunction with the patient's clinical presentation,history and other laboratory results. If the results areinconsistent with clinical evidence, additional testing issuggested to confirm the result. 06/04/2025 8:21 AM EST 06/04/2025 11:03 AM EST Ruth Barrios MD LAB BLOOD ORDERABLES Final Resul t Performing Organization Address [facility] Co de Phone Number [facility] [address] [place] [phone] * Hepatitis B Surface Antibody, Qualitative (06/04/2025 8:21 AM EST) ~Hepatitis B Surface Antibody REACTIVE Nonreactive [facility] Comment:REACTIVE: > 11.99 mI U/mL 06/04/2025 8:21 AM EST 06/04/2025 11:03 AM EST Ruth Barrios MD LAB BLOOD ORDERABLES Final Resul t Performing Organization Address [facility] Co de Phone Number [facility] [address] [place] [phone] Hemoglobin A1c (06/04/2025 8:21 AM EST) Hemoglobin A1c 5.4 <6.0 % [facility] Comment:Hemoglobin A1C Refer ence Range Adults: 4.8 - 6.0 % Non diabetic: < 6.0 % Goal: < 7.0 %Additional Action Suggested: > 8.0 %Note: Hemoglobin A1c results are invalid for patients with abnormal amounts of HbF. Blood transfusions may impact the HbA1c concentration in the patient sample. Estimated Average Glucose 108 mg/dL [facility] Comment:eAG = Estimated ave rage glucose which is %A1C expressed asaverage glucose, using the formula of the [id number] Glucose study (ADAG), Diabetes Care, Vol.31,#8,Feb. 2007 Blood Venous blood specimen / Unknown 06/04/2025 8:21 AM EST 06/04/2025 11:03 AM EST Gerry Salter MD LAB BLOOD ORDERABLES Final Resul t Performing Organization Address [facility] Co de Phone Number [facility] [address] [place] [phone] Hepatic Function Panel (06/04/2025 8:21 AM EST) Bilirubin, Total 0.4 0.0 - 1.0 mg/dL [facility] Bilirubin, Direct 0.1 0.0 - 0.5 mg/dL [facility] Aspartate Amino Transferase 36 5 - 37 U/L [facility] Alanine Aminotransferase 28 0 - 40 U/L [facility] Total Protein 7.9 6.5 - 8.0 g/dL [facility] Albumin Level 4.6 3.5 - 5.0 g/dL [facility] Alkaline Phosphatase 70 39 - 117 U/L [facility] 06/04/2025 8:21 AM EST 06/04/2025 11:03 AM EST us Ruth Barrios MD LAB BLOOD ORDERABLES Final Resul t Performing Organization Address [facility] Co de Phone Number [facility] [address] [place] [phone] * (ABNORMAL) Comprehensive Metabolic Panel (05/07/2025 8:55 AM EDT) Sodium 141 135 - 145 mmol/L [facility] Potassium 4.4 3.3 - 5.1 mmol/L [facility] Comment:Slight Hemolysis.Int erpret result with caution. Chloride 104 96 - 108 mmol/L [facility] Carbon Dioxide 31(H) 22 - 29 mmol/L [facility] Anion Gap 10(L) 12 - 20 [facility] Urea Nitrogen (BUN) 19(H) 9 - 16 mg/dL [facility] Creatinine, Serum 1.00 0.5 - 1.4 mg/dL [facility] Estimated Glomerular Filt Rate >60 [facility] Comment:Chronic Kidney Disea se: Estimated GFR < 60 mL/min/1.07b9Tcgqfx Kidney Disease: Estimated GFR < 15 mL/min/1.73m2 Glucose 167(H) 60 - 115 mg/dL [facility] Calcium 9.3 8.4 - 10.2 mg/dL [facility] Bilirubin, Total 0.3 0.0 - 1.0 mg/dL [facility] Aspartate Amino Transferase 53(H) 5 - 37 U/L [facility] Comment:Slight Hemolysis.Int erpret result with caution. Alanine Aminotransferase 37 0 - 40 U/L [facility] Total Protein 8.2(H) 6.5 - 8.0 g/dL [facility] Albumin Level 4.8 3.5 - 5.0 g/dL [facility] Alkaline Phosphatase 72 39 - 117 U/L [facility] 05/07/2025 8:55 AM EDT 05/07/2025 11:37 AM EDT us Gerry Name LAB BLOOD ORDERABLES Final Resul t [facility] [address] [place] [address] [phone] * (ABNORMAL) Lipid Panel, Standard (08/31/2022 11:38 AM EST) Cholesterol, Total 181 <200 mg/dL [facility] HDL Cholesterol 39(L) > OR = 40 mg/dL [facility] Triglycerides 108 <150 mg/dL [facility] LDL Cholesterol 120(H) mg/dL (calc) [facility] Comment: Reference range: <100 Desirable range <100 mg/dL for primary prevention; <70 mg/dL for patients with CHD or diabetic patients with > or = 2 CHD risk factors. LDL-C is now calculated using the Antonino calculation, which is a validated novel method providing better accuracy than the Friedewald equation in the estimation of LDL-C. Braeden SCHAFER et al. SAPPHIRE. 2013;310(19): 5994-9374 (http://education.Localyte.com/faq/VHO536) Chol/HDLC Ratio 4.6 <5.0 (calc) [facility] Non-HDL Cholesterol 142(H) <130 mg/dL (calc) [employer] Comment: For patients with diabetes plus 1 [...] BLOOD ORDERABLES Final Resul t [facility] [address] [place] [phone] [facility] [place] [facility] [address] [facility], ([address]) [place] [address] from Last 3 Months or Most Recently Relevant to Health Maintenance Insurance [employer] Care Teams Integrated Campaign Manager Relationship Specialty Start Date End Date Name, MD Gerry [address] [place] [address] PCP - General Family Medicine 02/16/17
--- OUTSIDE RECORDS SUMMARY | 2025-07-03 11:05 | XMS_ITS | Encounter Summary ---
Author Organization [employer] Address [address] [place] [address] [address] [place] [address] Care Team Providers Care Circular Gang Saw Operator Name Role Phone Name, Gerry ANDERSON Primary Care Provider [phone] Encounter Details Date Type Department Care Team ([facility] st Contact Info) Description 02/02/2024 Orders Only [facility] [address], [place] [phone] Ruth Barrios MD [address] [place], [place] [phone] Social History Tobacco Use Types Packs/Day Years [...] with others, in a hotel, in a assisted, living outside on the street, on a [...] Description 07/16/2025 9:15 AM EST Office Visit [facility] [address] [place] [address] Ruth Barrios MD [address] [place] [address] documented as of this encounter Procedures Procedure Name Priority Date/Time Associated Diagnosis Comments HOLD GREEN GEL Routine 10/09/2024 8:40 AM EDT documented in this encounter Results * Hold Green Gel (10/09/2024 8:40 AM EDT) Hold Green Gel See Note [facility] Comment:Specimen held untest ed for 24 hours; Call to requestChemistry testing. 10/09/2024 8:40 AM EDT 10/09/2024 11:49 AM EDT us Gerry Name HISTORICAL/NON ORDERABLE LABS Fi nal Result [facility] [address] [place] [phone] documented in this encounter Visit Diagnoses Not on filedocumented in this encounter Additional Health Concerns Assessment Noted Time PHQ-9 Depression Total Score: 0 01/20/20 23 10:35 AM EDT documented as of this encounter Care Teams Circular Gang Saw Operator Relationship Specialty Start Date End Date Name, MD Gerry [address] [place] [address] PCP - General Family Medicine 02/16/17 documented as of this encounter
== END 2025-06-30 09:40 | disposition home or self-care (01) ==
LOC: HO.HOSX 09:39
PROVIDERS: Visit Provider Physician Assistant
DX: M17.11 Unilateral primary osteoarthritis, right knee (principal)
CPT/HCPCS: 20610; 73562; J0665; J1100; J2003

== ENCOUNTER 2025-06-30 13:49 | Outpatient (AMB) | payer MEDICAID, SELFPAY ==
--- NOTE | 2025-06-30 14:24 | A.OFFVIS_ITS ---
Intake Visit Reasons: OV- RT knee pain, last injection 04/22/24 Intake Note: Edmund is a 58 year old male who presents today for a follow up with complaints of right knee pain. At his last visit on 04/22/24 an injection was given and referred to PT. Today patient reports last injection did not help. He continues to have pain at the anterior aspect of knee wraps around his knee. His pain increases with the cold weather. Finds no relief with use of ibuprofen. Clinical Lab Scientist Required: Yes Clinical Lab Scientist Services: Clinical Lab Scientist Present Clinical Lab Scientist Name: Shyann ID#[id number] Allergies No Known Allergies (No Known Allergies*) Allergy (Verified 06/30/25 14:25) Medication List - Last Reconciled 06/30/25 by Diamond Norris PA-C buprenorphine-naloxone 8-2 mg (Suboxone) 8 film sublingual bupropion HCl XL 300 mg PO QAM hydroxyzine HCl 25 mg PO TID PRN ibuprofen 800 mg PO TID omeprazole 20 mg PO DAILY sertraline 200 mg PO BEDTIME HPI HPI OV- RT knee pain, last injection 04/22/24: Details: 59-year-old gentleman returns to the office today for a follow-up right knee pain. He saw me back in March of 2024 where he had an injection but he states there was no relief with the injection. He continues to have pain with daily activities. He had a left total knee arthroplasty done with Dr. Falk approximately 5-6 years ago. [facility] Medical History Anxiety and depression Hypertension Morbid obesity Primary osteoarthritis of left knee Smoker Surgical History History of total left knee replacement History of umbilical hernia repair Family History Father No problems noted. Mother No problems noted. Social History (Updated 04/22/24 @ 10:32 by Maria D Marie) Housing Other:: Lives in [facility] Are you a primary care management associate to a significant other at home: No Do you presently have visiting nurse or other home services: No Alcohol intake: never Patient Tobacco Use Status: Current everyday Tobacco user Tobacco use type: Cigarette Cigarettes Per Day: 2 Current occupational status: disabled Current occupation: left hand dominant Physical Exam Const General: cooperative, healthy appearing, comfortable, no acute distress, well developed and alert Orientation/consciousness: patient oriented x3 HEENT Head: Yes normal to inspection, Yes normocephalic and Yes atraumatic Eyes General: appearance normal, both eyes and all related structures Resp Effort & Inspection: normal respiratory effort and able to speak in complete sentences Cardio Rate: regular rate Peripheral pulses: Peripheral pulses 2+ throughout GI Palpation (GI): Soft to palpation Skin Lesions: no lesions Rashes: no rashes Neuro General: patient oriented x3 Extrem Other: Right knee: Skin intact, no erythema or joint effusion. Tenderness along the medial joint line. Full ROM with crepitus. Negative Chin?s. No ligamentous laxity. NVI. Office Procedures AMB Joint Injection/Aspiration Joint Injection/Aspiration Primary Site: Right Knee Prep: site was prepped using aseptic technique, ethochloride spray was applied and injection warnings given Injected: 40 mg of, Decadron, with 3 mL of, 1% plain Lidocaine, 0.25% Bupivacaine and in the joint Approach Used: anterolateral Procedure: The patient tolerated the procedure well and there was some relief with the local anesthesia Coding 10615 - Glenohumeral/Tronchanteric Bursa/Intraarticular Procedure code (CPT) selection complete Results Reviewed Results Reviewed: xrays of the right knee obtained in the office today and reviewed by me significant for mild right knee oa Assessment & Plan Assessment & Plan (1) Osteoarthritis of right knee: Code(s): M17.11 - Unilateral primary osteoarthritis, right knee Category: Medical Plan: We discussed options today, which include steroid injection. The patient did consent to move forward with the injection, which was tolerated well.? I recommended rest, ice and elevation and OTC antiinflammatories prn for discomfort. If symptoms persist over the next 6-8 weeks, they will contact our office, otherwise, prn Orders: Orders XR knee RT 3V Today M17.11 - Unilateral primary osteoarthritis, right knee Coding Level of Care Code Complex visit Add On G2211 Diagnoses Osteoarthritis of right knee M17.11 CPT Codes Coding - Joint 7: 84346 - Glenohumeral/Tronchanteric Bursa/Intraarticular ([id number])
--- OUTSIDE RECORDS SUMMARY | 2025-06-30 17:19 | XMS_ITS | Encounter Summary ---
Author Organization [employer] Address [address] [place] [address] [address] [place] [address] Care Team Providers Care Clinical Rn Manager Name Role Phone Name, Gerry ANDERSON Primary Care Provider [phone] Reason for Visit * Reason Comments Med Refill Encounter Details Date Type Department Care Team ([facility] st Contact Info) Description 06/30/2025 Refill [facility] [address] [place], [place] [phone] Name, MD Gerry [address] [place] [address] Chronic pain of left knee Social History Tobacco Use Types Packs/Day Years [...] Care Team (Late st Contact Info) Description 07/02/2025 10:00 AM EST Clinical Support [facility] [address] [place] [address] Arun Ledesma, NIRALI [address] [place] [phone] 07/16/2025 9:15 AM EST Office Visit [address] [address] Ruth Barrios MD [address] [place] [phone] documented as of this encounter Goals Goal Patient Goal Type Associated Problems Recent Progress Patient-Stated? Author Maintaining remission stage from opioid use disorder General On track(06/18/20 10:14 AM EST) Yes Ruth Barrios MD Quit using tobacco (cigarettes, smokeless, etc) Tobacco Use No change( 11:11 AM EST) No Ruth Barrios MD Note: 1.5 cigs per day on 10/23/24 1 cig day on 03/12/25 documented as of this encounter Visit Diagnoses Diagnosis Chronic pain of left knee documented in this encounter Additional Health Concerns Assessment Noted Time PHQ-9 Depression Total Score: 0 05/21/20 9:11 AM EDT documented as of this encounter Care Teams Clinical Rn Manager Relationship Specialty Start Date End Date Name, MD Gerry [address] [place] [address] PCP - General Family Medicine 02/16/17 documented as of this encounter
--- OUTSIDE RECORDS SUMMARY | 2025-06-30 17:19 | XMS_ITS | Encounter Summary ---
Author Organization [employer] Address [address] [place] [address] 7 [place] [address] Care Team Providers Care Back Hand Name Role Phone Name, Gerry ANDERSON Primary Care Provider [phone] Encounter Details Date Type Department Care Team ([facility] st Contact Info) Description 02/02/2024 Orders Only [facility] [address] [place], [place] [phone] Ruth Barrios MD [address] [place], [place] [phone] Social History Tobacco Use Types Packs/Day Years [...] with others, in a hotel, in a long term, living outside on the street, on a [...] Description 07/02/2025 10:00 AM EST Clinical Support [address] [address] Arun Ledesma, NIRALI [address] [place] [phone] 07/16/2025 9:15 AM EST Office Visit [facility] [address] [place] [address] Ruth Barrios MD [address] [place] [address] documented as of this encounter Procedures Procedure Name Priority Date/Time Associated Diagnosis Comments HOLD GREEN GEL Routine 10/09/2024 8:40 AM EDT documented in this encounter Results * Hold Green Gel (10/09/2024 8:40 AM EDT) Hold Green Gel See Note [facility] Comment:Specimen held untest ed for 24 hours; Call to requestChemistry testing. 10/09/2024 8:40 AM EDT 10/09/2024 11:49 AM EDT us Gerry Salter MD HISTORICAL/NON ORDERABLE LABS Fi nal Result [facility] [address] [place] [address] [phone] documented in this encounter Visit Diagnoses Not on filedocumented in this encounter Additional Health Concerns Assessment Noted Time PHQ-9 Depression Total Score: 0 01/20/20 23 10:35 AM EDT documented as of this encounter Care Teams Back Hand Relationship Specialty Start Date End Date Name, MD Gerry [address] [place] [address] PCP - General Family Medicine 02/16/17 documented as of this encounter
--- OUTSIDE RECORDS SUMMARY | 2025-06-30 17:19 | XMS_ITS | Clinical Summary ---
Author Organization [employer] Address [address] [place] [address] [address] [place] [address] Care Team Providers Care Travel Writer Name Role Phone Name, Gerry ANDERSON Primary Care Provider [phone] Allergies No known active allergies Medications * This document contains information received from the source organization and may not represent a complete record from that organization. atorvastatin (Lipitor) 20 MG tablet 01/22/20 22 Active cloNIDine (Catapres) 0.1 MG tablet Active Diclofenac Sodium 1 % gel 12/11/19 22 Active fish oil concentrate ([place]-3) 1000 MG capsule 11/16/19 19 Active hydrocortisone [...] MG SL filmIndications :Uncomplicated opioid dependence (CMS/HCC) ([facility]) Place 1 Film under the tongue 3 times daily. 84 Film 10:21 AM EST 06/12/20 25 025 Active Buprenorphine HCl-Naloxone HCl (Suboxone) 8-2 MG SL filmIndications :Uncomplicated opioid dependence (CMS/HCC) ([facility]) Place 1 Film under the tongue 3 times daily for 28 days. 84 Film 05/14/20 25 025 Discontinued(Re order (will not trigger notification to Pharmacy)) Active Problems Problem Noted Date Diagnosed Date Osteoarthritis of right knee 06/21/2024 Tobacco use 11/23/2022 Assessment & Plan (06/17/2025 11:19 PM EST): - making a progress towards his goal - nicotine patch and lozenge Assessment & Plan (11/17/2024 4:20 AM EDT): [...] 2 Opioid dependence 08/23/2017 Assessment & Plan (06/17/2025 11:19 PM EST): -long-term remission stage of recovery -Recurrence after 1 year (December 2017 - January 2019) of maintenance stage due to postop (TKR on 04/02/19) pain management -OD on 04/22/20. -Detox and CSS at [facility] in Feb 2020May 2020 -Has recovery counselor and is in residential program currently, since May 2020 -Overdose risk: low-intermediate. Risk factors - decreased tolerance; history of overdose (but not recent) -Co-prescription of high-risk medications: none -Discussed about the importance of harm reduction and OD prevention -Continue current recovery effort and support Assessment & Plan (06/04/2025 5:34 AM EST): -long-term remission stage of recovery -Recurrence after 1 year (December 2017 - January 2019) of maintenance stage due to postop (TKR on 04/02/19) pain management -OD on 04/22/20. -Detox and CSS at [facility] in Feb 2020May 2020 -Has recovery counselor and is in residential program currently, since May 2020 -Overdose risk: low-intermediate. Risk factors - decreased tolerance; history of overdose (but not recent) -Co-prescription of high-risk medications: none -Discussed about the importance of harm reduction and OD prevention -Continue current recovery effort and support Assessment & Plan (05/21/2025 6:03 AM EDT): -long-term remission stage of recovery -Recurrence after 1 year (December 2017 - January 2019) of maintenance stage due to postop (TKR on 04/02/19) pain management -OD on 04/22/20. -Detox and CSS at [facility] in Feb 2020May 2020 -Has recovery [...] -OD on 04/22/20. -Detox and CSS at [facility] in Feb 2020May 2020 -Has recovery [...] -OD on 04/22/20. -Detox and CSS at [facility] in Feb 2020May 2020 -Has recovery [...] -OD on 04/22/20. -Detox and CSS at [facility] in Feb 2020May 2020 -Has recovery [...] -OD on 04/22/20. -Detox and CSS at [facility] in Feb 2020May 2020 -Has recovery [...] -OD on 04/22/20. -Detox and CSS at [facility] in Feb 2020May 2020 -Has recovery [...] -OD on 04/22/20. -Detox and CSS at [facility] in Feb 2020May 2020 -Has recovery [...] -OD on 04/22/20. -Detox and CSS at [facility] in Feb 2020May 2020 -Has recovery [...] -OD on 04/22/20. -Detox and CSS at [facility] in Feb 2020May 2020 -Has recovery [...] -OD on 04/22/20. -Detox and CSS at [facility] in Feb 2020May 2020 -Has recovery [...] -OD on 04/22/20. -Detox and CSS at [facility] in Feb 2020May 2020 -Has recovery [...] -OD on 04/22/20. -Detox and CSS at [facility] in Feb 2020May 2020 -Has recovery [...] -OD on 04/22/20. -Detox and CSS at [facility] in Feb 2020May 2020 -Has recovery counselor and is in residential program currently, since May 2020 -Overdose risk: intermediate. Risk factors - decreased tolerance; history of overdose (but not recent) -Co-prescription of high-risk medications: none -Discussed about the importance of harm reduction and OD prevention -Continue Nxzhivfn78/4 mg daily Assessment & Plan (08/14/2024 5:18 AM EST): -long-term remission stage of recovery -Recurrence after 1 year (December 2017 - January 2019) of maintenance stage due to postop (TKR on 04/02/19) pain management -OD on 04/22/20. -Detox and CSS at [facility] in Feb 2020May 2020 -Has recovery counselor and is in residential program currently, since May 2020 -Overdose risk: Average. -Co-prescription of high-risk medications: none -Discussed about the importance of harm reduction and OD prevention -Continue Wusrwhyr00/4 mg daily Assessment & Plan (07/17/2024 5:55 AM EST): -long-term remission stage of recovery -Recurrence after 1 year (December 2017 - January 2019) of maintenance stage due to postop (TKR on 04/02/19) pain management -OD on 04/22/20. -Detox and CSS at [facility] in Feb 2020May 2020 -Has recovery counselor and is in residential program currently, since May 2020 -Overdose risk: Average. -Co-prescription of high-risk medications: none -Discussed about the importance of harm reduction and OD prevention -Continue Sopjnnfg00/4 mg daily Assessment & Plan (07/03/2024 10:33 AM EST): -long-term remission stage of recovery -Recurrence after 1 year (December 2017 - January 2019) of maintenance stage due to postop (TKR on 04/02/19) pain management -OD on 04/22/20. -Detox and CSS at [facility] in Feb 2020May 2020 -Has recovery counselor and is in residential program currently, since May 2020 -Overdose risk: Average. -Co-prescription of high-risk medications: none -Discussed about the importance of harm reduction and OD prevention -Continue Yiddkbmo12/4 mg daily Assessment & Plan (05/07/2024 10:17 PM EDT): -long-term remission stage of recovery -Recurrence after 1 year (December 2017 - January 2019) of maintenance stage due to postop (TKR on 04/02/19) pain management -OD on 04/22/20. -Detox and CSS at [facility] in Feb 2020May 2020 -Has recovery counselor and is in residential program currently, since May 2020 -Overdose risk: Average. -Co-prescription of high-risk medications: none -Discussed about the importance of harm reduction and OD prevention -Continue Qrcgyxpx99/4 mg daily Assessment & Plan (01/03/2024 5:00 AM EDT): -long-term remission stage of recovery -Recurrence after 1 year (December 2017 - January 2019) of maintenance stage due to postop (TKR on 04/02/19) pain management -OD on 04/22/20. -Detox and CSS at [facility] in Feb 2020May 2020 -Has recovery counselor and is in residential program currently, since May 2020 -Overdose risk: Average. -Co-prescription of high-risk medications: none -Discussed about the importance of harm reduction and OD prevention -Continue Pelrfcij75/4 mg daily Assessment & Plan (12/20/2023 5:20 AM EDT): -long-term remission stage of recovery -Recurrence after 1 year (December 2017 - January 2019) of maintenance stage due to postop (TKR on 04/02/19) pain management -OD on 04/22/20. -Detox and CSS at [facility] in Feb 2020May 2020 -Has recovery counselor and is in residential program currently, since May 2020 -Overdose risk: Average. -Co-prescription of high-risk medications: none -Discussed about the importance of harm reduction and OD prevention -Continue Eyavzoig97/4 mg daily Assessment & Plan (12/06/2023 10:25 AM EDT): -long-term remission stage of recovery -Recurrence after 1 year (December 2017 - January 2019) of maintenance stage due to postop (TKR on 04/02/19) pain management -OD on 04/22/20. -Detox and CSS at [facility] in Feb 2020May 2020 -Has recovery counselor and is in residential program currently, since May 2020 -Overdose risk: Average. -Co-prescription of high-risk medications: none -Discussed about the importance of harm reduction and OD prevention -Continue Pclevxee59/4 mg daily Assessment & Plan (11/21/2023 11:06 PM EDT): -long-term remission stage of recovery -Recurrence after 1 year (December 2017 - January 2019) of maintenance stage due to postop (TKR on 04/02/19) pain management -OD on 04/22/20. -Detox and CSS at [facility] in Feb 2020May 2020 -Has recovery counselor and is in residential program currently, since May 2020 -Overdose risk: Average. -Co-prescription of high-risk medications: none -Discussed about the importance of harm reduction and OD prevention -Continue Oxrsbgfv28/4 mg daily Assessment & Plan (11/08/2023 5:23 AM EDT): -long-term remission stage of recovery -Recurrence after 1 year (December 2017 - January 2019) of maintenance stage due to postop (TKR on 04/02/19) pain management -OD on 04/22/20. -Detox and CSS at [facility] in Feb 2020May 2020 -Has recovery counselor and is in residential program currently, since May 2020 -Overdose risk: Average. -Co-prescription of high-risk medications: none -Discussed about the importance of harm reduction and OD prevention -Continue Iubsujxp64/4 mg daily Assessment & Plan (10/25/2023 5:11 AM EDT): -long-term remission stage of recovery -Recurrence after 1 year (December 2017 - January 2019) of maintenance stage due to postop (TKR on 04/02/19) pain management -OD on 04/22/20. -Detox and CSS at [facility] in Feb 2020May 2020 -Has recovery counselor and is in residential program currently, since May 2020 -Overdose risk: Average. -Co-prescription of high-risk medications: none -Discussed about the importance of harm reduction and OD prevention -Continue Xwzixgdh04/4 mg daily Assessment & Plan (10/11/2023 10:04 AM EDT): -long-term remission stage of recovery -Recurrence after 1 year (December 2017 - January 2019) of maintenance stage due to postop (TKR on 04/02/19) pain management -OD on 04/22/20. -Detox and CSS at [facility] in Feb 2020May 2020 -Has recovery counselor and is in residential program currently, since May 2020 -Overdose risk: Average. -Discussed about the importance of harm reduction and OD prevention -Continue Wtivqqnh85/4 mg daily Assessment & Plan (09/12/2023 5:04 PM EST): -long-term remission stage of recovery -Recurrence after 1 year (December 2017 - January 2019) of maintenance stage due to postop (TKR on 04/02/19) pain management -OD on 04/22/20. -Detox and CSS at [facility] in Feb 2020May 2020 -Has recovery counselor and is in residential program currently, since May 2020 -Overdose risk: Average. -Discussed about the importance of harm reduction and OD prevention -Continue Rnryxyer72/4 mg daily Assessment & Plan (07/18/2023 10:50 PM EST): -long-term remission stage of recovery -Recurrence after 1 year (December 2017 - January 2019) of maintenance stage due to postop (TKR on 04/02/19) pain management -OD on 04/22/20. -Detox and CSS at [facility] in Feb 2020May 2020 -Has recovery counselor and is in residential program currently, since May 2020 -Overdose risk: Average. -Discussed about the importance of harm reduction and OD prevention -Continue Qfpxsscv53/4 mg daily Assessment & Plan (06/07/2023 5:32 AM EST): -long-term remission stage of recovery -Recurrence after 1 year (December 2017 - January 2019) of maintenance stage due to postop (TKR on 04/02/19) pain management -OD on 04/22/20. -Detox and CSS at [facility] in Feb 2020May 2020 -Has recovery counselor and is in residential program currently, since May 2020 -Overdose risk: Average. -Discussed about the importance of harm reduction and OD prevention -Continue Deoowded05/4 mg daily Assessment & Plan (05/09/2023 10:19 PM EDT): -long-term remission stage of recovery -Recurrence after 1 year (December 2017 - January 2019) of maintenance stage due to postop (TKR on 04/02/19) pain management -OD on 04/22/20. -Detox and CSS at [facility] in Feb 2020May 2020 -Has recovery counselor and is in residential program currently, since May 2020 -Overdose risk: Average. -Discussed about the importance of harm reduction and OD prevention -Continue Bcmtwauz61/4 mg daily Assessment & Plan (11/23/2022 9:48 AM EDT): -long-term remission stage of recovery -Recurrence after 1 year (December 2017 - January 2019) of maintenance stage due to postop (TKR on 04/02/19) pain management -OD on 04/22/20. -Detox and CSS at [facility] in Feb 2020May 2020 -Has recovery counselor and is in residential program currently, since May 2020 -Discussed about the importance of harm reduction and OD prevention (Carry Narcan) -Continue Sduhlqaa06/4 mg daily Assessment & Plan (11/09/2022 10:59 AM EDT): -long-term remission stage of recovery -Recurrence after 1 year (December 2017 - January 2019) of maintenance stage due to postop (TKR on 04/02/19) pain management -OD on 04/22/20. -Detox and CSS at [facility] in Feb 2020May 2020 -Has recovery counselor and is in residential program currently, since May 2020 -Discussed about the importance of harm reduction and OD prevention (Carry Narcan) -Continue Xdfrvekr48/4 mg daily Assessment & Plan (10/26/2022 4:05 PM EDT): -long-term remission stage of recovery -Recurrence after 1 year (December 2017 - January 2019) of maintenance stage due to postop (TKR on 04/02/19) pain management -OD on 04/22/20. -Detox and CSS at [facility] in Feb 2020May 2020 -Has recovery counselor and is in residential program currently, since May 2020 -Discussed about the importance of harm reduction and OD prevention (Carry Narcan) -Continue Nwwtjxyv18/4 mg daily Assessment & Plan (09/14/2022 9:53 AM EST): -long-term remission stage of recovery -Recurrence after 1 year (December 2017 - January 2019) of maintenance stage due to postop (TKR on 04/02/19) pain management -OD on 04/22/20. -Detox and CSS at [facility] in Feb 2020May 2020 -Has recovery counselor and is in residential program currently, since May 2020 -Discussed about the importance of harm reduction and OD prevention (Carry Narcan) -Continue Wzqzplvy31/4 mg daily Assessment & Plan (08/31/2022 10:11 AM EST): -long-term remission stage of recovery -Recurrence after 1 year (December 2017 - January 2019) of maintenance stage due to postop (TKR on 04/02/19) pain management -OD on 04/22/20. -Detox and CSS at [facility] in Feb 2020May 2020 -Has recovery counselor and is in residential program currently, since May 2020 -Discussed about the importance of harm reduction and OD prevention (Carry Narcan) -Continue Qxmuxghm53/4 mg daily Assessment & Plan (07/20/2022 5:13 AM EST): -long-term remission stage of recovery -Recurrence after 1 year (December 2017 - January 2019) of maintenance stage due to postop (TKR on 04/02/19) pain management -OD on 04/22/20. -Detox and CSS at [facility] in Feb 2020May 2020 -Has recovery counselor and is in residential program currently, since May 2020 -Discussed about the importance of harm reduction and OD prevention (Carry Narcan) -Continue Wnfsbyfe48/4 mg daily Depressive disorder 06/26/2017 Polyp of [...] Encounters Date Type Department Care Team Description 06/30/2025 Refill [facility] [address] [place] [id number] Gerry Salter MD Chronic pain of left knee 06/18/2025 10:15 AM EST Office Visit [address] [address] Ruth Barrios MD Uncomplicated opioid dependence ([facility]/HCC) ([facility]) (Primary Dx); Tobacco use 06/18/2025 Travel 06/11/2025 Refill [facility] [address] [place] [address] Arun Ledesma RN Uncomplicated opioid dependence ([facility]/HCC) ([facility]) 06/04/2025 10:00 AM EST Office Visit [address] [address] Ruth Barrios MD Uncomplicated opioid dependence ([facility]/HCC) ([facility]) (Primary Dx); Encounter for vaccination; Encounter for immunization 06/04/2025 Orders Only [address] [address] Ruth Barrios MD 06/04/2025 Travel 05/23/2025 Orders Only [address] [address] Arun Ledesma, NIRALI Uncomplicated opioid dependence (CMS/HCC) ([facility]) 05/21/2025 10:00 AM EDT Office Visit [address] [place] [address] Ruth Barrios MD Uncomplicated opioid dependence (CMS/HCC) (HCC) (Primary Dx) 05/21/2025 Patient Outreach [facility] [place] [address] Ciara Blacko Recovery Supports 05/21/2025 Travel 05/14/2025 Refill [facility] [address] [place] [address] Arun Ledesma RN Uncomplicated opioid dependence (CMS/HCC) (HCC) 05/08/2025 Results Follow-Up [address] [address] Gerry Salter MD Comprehensive Metabolic Panel 05/07/2025 10:15 AM EDT Office Visit [address] [address] Ruth Barrios MD Uncomplicated opioid dependence (CMS/HCC) (HCC) (Primary Dx); Tobacco use 05/07/2025 Orders Only [address] [address] Gerry Salter MD 05/07/2025 Travel 04/28/2025 11:00 AM EDT Office Visit [facility] [place] [address] Gerry Salter MD Chronic pain of right knee (Primary Dx); Depressive disorder 04/28/2025 Patient Outreach [facility] [place] [address] Gerry Salter MD Care Coordination ([facility] outreach for SDOH housing search-referral completed ) 04/28/2025 Travel 04/25/2025 Telephone [facility] [place] [address] Lashon Díaz [place] CHART PREP 04/23/2025 10:00 AM EDT Office Visit [address] [address] Ruth Barrios MD Uncomplicated opioid dependence (CMS/HCC) (Primary Dx) 04/23/2025 Travel 04/16/2025 Refill [facility] [address] [place] [address] Arun Ledesma RN Uncomplicated opioid dependence ([facility]/HCC) 04/09/2025 9:15 AM EDT Office Visit [facility] [address] [place] [address] Ruth Barrios MD Uncomplicated opioid dependence ([facility]) (Primary Dx) 04/09/2025 Travel from Last 3 Months Immunizations Immunization Administration Dates Next Due Hep A, Adult 11/01/2023 Hep B, adult 11/01/2023,07/06/2017,06/06/2017 Influenza injectable quadriv alent IIV4 with preservative 06/04/2018,04/27/2017 Influenza injectable quadriv alent preservative free 04/28/2022,05/20/2020,04/24/2019 Influenza, seasonal, injecta ble, preservative free 06/04/2025 Moderna Covid-19 Vaccine 12+ 09/01/2021,09/08/19,08/15/2020 Pfizer Covid-19 Vaccine 12+ 06/04/2025 Pneumococcal Conjugate PCV 20 06/04/2025 Pneumococcal Polysaccharide PPSV23 06/26/2017 Tdap 04/27/2017 Social [...] Description 07/02/2025 10:00 AM EST Clinical Support [facility] [address] [place] [address] Arun Ledesma, NIRALI [address] [place] [address] 07/16/2025 9:15 AM EST Office Visit [facility] [address] [place] [address] Ruth Barrios MD [address] [place] [address] Health Maintenance Due Date Last Done Comments CT Colonography 1965 Colonoscopy 1965 Colorectal Cancer Screening 1965 FIT DNA/Cologuard 1965 FIT 1965 FOBT 1965 Sigmoidoscopy 1965 RSV Patients and Patients Aged 60 years or older (1 - Risk 50-74 years 1-dose series) 2015 Zoster Vaccines (2 of 2) 10/12/2024 08/17/2024 Disability Screening 04/28/2026 04/28/2025 Tobacco Screening 04/28/2026 04/28/2025 Alcohol/Substance Use Screening 05/21/2026 05/21/2025 Depression Screening 05/21/2026 05/21/2025, 05/21/20 25 SDOH Screening 05/21/2026 05/21/2025 Lipid Panel 08/31/2027 08/31/2022, 11/29, 07/06/2021 DTaP/Tdap/Td Vaccines (3 - Td or Tdap) 08/17/2034 08/17/2024, 04/27/2017 Hepatitis A Vaccines Discontinued 11/01/2023 Hepatitis B Vaccines Completed 08/17/2024, 11/01/2023, 07/06/2017, Additional history exists COVID-19 Vaccine Completed 06/04/2025, 07/2023, 09/01/2021, Additional history exists HIV Screening Completed 06/04/2025, 04/0 11/2022, 09/25/2020, Additional history exists Influenza Vaccine Completed 06/04/2025, , 04/28/2022, Additional history exists Pneumococcal Vaccine: 50+ Years Completed 06/04/2025, 08/17/2024, 06/26/2017 HIB Vaccines Aged Out No longer eligi [...] Comments POCT GABI-14 URINE DRUG SCREEN Routine 06/18/2025 10:10 AM EST Uncomplicated opioid dependence (CMS/HCC) (HCC) T-SPOT(R).TB Routine 06/04/2025 8:21 AM EST HEPATITIS A ANTIBODY, TOTAL Routine 06/04/2025 8:21 AM EST HEPATITIS C VIRAL RNA, QUANTITATIVE, REAL-TIME PCR Routine 06/04/2025 8:21 AM EST HEPATITIS B SURFACE ANTIGEN, EIA Routine 06/04/2025 8:21 AM EST HIV 1/2 ANTIGEN/ANTIBODY, FOURTH GENERATION W/RFL Routine 06/04/2025 8:21 AM EST HEPATITIS B CORE AB TOTAL Routine 06/04/2025 8:21 AM EST HEPATITIS B SURFACE ANTIBODY, QUALITATIVE Routine 06/04/2025 8:21 AM EST SYPHILIS SCREEN Routine 06/04/2025 8:21 AM EST HEPATIC FUNCTION PANEL Routine 8:21 AM EST HEMOGLOBIN A1C Routine 06/04/2025 8:21 AM EST Hyperglycemia POCT GABI-14 URINE DRUG SCREEN Routine 05/07/2025 9:24 AM EDT Uncomplicated opioid dependence (CMS/HCC) (HCC) COMPREHENSIVE METABOLIC PANEL Routine 05/07/2025 8:55 AM EDT POCT GABI-14 URINE DRUG SCREEN Routine 04/09/2025 9:15 AM EDT Uncomplicated opioid dependence (CMS/HCC) LIPID PANEL, STANDARD Routine 08/31/2022 11:38 AM EST Screening for cholesterol level from Last 3 Months or Most Recently Relevant to Health Maintenance Results * (ABNORMAL) POCT GABI-14 Urine Drug Screen (06/18/2025 10:10 AM EST) Only the most recent of3 resultswithin the [...] obtained by clean catch procedure / Unknown 06/18/2025 10:10 AM EST Ruth Barrios MD POINT OF CARE TEST ENTER/EDIT OR DERABLES Final Result * Syphilis Screen (06/04/2025 8:21 AM EST) Syphilis Screen Nonreactive Nonreactive [facility] 06/04/2025 8:21 AM EST 06/04/2025 11:03 AM EST Ruth Barrios MD LAB BLOOD ORDERABLES Final Resul t [facility] [address] [place] [address] [phone] * T-SPOT??.TB (06/04/2025 8:21 AM EST) [facility] T Spot TB Negative Negative [facility] Comment:A negative test resu lt does not exclude the possibilityof exposure to or infection with Mycobacteriumtuberculosis (M. tuberculosis). Patients with recentexposure to TB infected individuals exhibiting anegative T-SPOT.TB result should be considered forretesting within 6 weeks or if other relevant clinicalsymptoms indicate. Results from T-SPOT.TB testing mustbe used in conjunction with each individual'sepidemiological history, current medical status,and results of other diagnostic evaluations.The T-SPOT.TB test is qualitative and results arereported as positive, borderline, or negative, giventhat the test controls perform as expected. In linewith the Centers for Disease Control and Prevention's2010 recommendation to report quantitative measurementsalongside the qualitative result, the laboratoryprovides spot counts for informational purposes only.The T-SPOT.TB test should not be interpreted as aquantitative test. TS PANEL A 0 [facility] TS PANEL B 1 [facility] Negative Control Passed [facility] Positive Control Passed [facility] Comment:For additional infor kolton, please refer tohttp://education.[employer]/faq/NAX368(This link is being provided for informational/educational purposes only.)THIS TEST WAS PERFORMED AT:[id number] [place] [id number] LUX MD,PHD 06/04/2025 8:21 AM EST 06/04/2025 11:03 AM EST Ruth Barrios MD LAB BLOOD ORDERABLES Final Resul t Performing Organization Address [facility] Co de Phone Number [facility] [address] [phone] * Hepatitis C Viral RNA, Quantitative, Real-Time PCR (06/04/2025 8:21 AM EST) Pathologist [facility] Hepatitis C Viral Load <15 NOT DETECTED NOT DETECTED IU/mL [facility] LABS HCV Log PCR <1.18 NOT DETECTED NOT DETECTED Log IU/mL [facility] Comment:For additional infor mation, please refer tohttp://education.Ohai/faq/WYL44l7(This link is being provided for informational/educational purposes only.)THIS TEST WAS PERFORMED AT:[facility] [place] [id number] RALPH MD 06/04/2025 8:21 AM EST 06/04/2025 11:03 AM EST us Ruth Barrios MD LAB BLOOD ORDERABLES Final Resul t Performing Organization Address [facility] de Phone Number [facility] [address] [place] [phone] * Hepatitis A Antibody, Total (06/04/2025 8:21 AM EST) Pathologist [facility] Hepatitis A Antibody IgG REACTIVE Nonreactive [facility] Comment:The presence of IgG anti-HAV implies past HAV infection(recent or distant) or vaccination against HAV. 06/04/2025 8:21 AM EST 06/04/2025 11:03 AM EST Ruth Barrios MD LAB BLOOD ORDERABLES Final Resul t Performing Organization Address [facility] Co de Phone Number [facility] [address] [place] [phone] * Hepatitis B surface antigen, EIA (06/04/2025 8:21 AM EST) Pathologist [facility] Hepatitis B Surface Ag Negative Negative [facility] 06/04/2025 8:21 AM EST 06/04/2025 11:03 AM EST Ruth Barrios MD LAB BLOOD ORDERABLES Final Resul t Performing Organization Address [facility] Co de Phone Number [facility] [address] [place] [phone] * Hepatitis B Core Antibody, Total (06/04/2025 8:21 AM EST) Hepatitis B Core Antibody Nonreactive Nonreactive [facility] 06/04/2025 8:21 AM EST 06/04/2025 11:03 AM EST Ruth Barrios MD LAB BLOOD ORDERABLES Final Resul t Performing Organization Address [facility] de Phone Number [facility] [address] [place] [phone] * HIV-1/2 Antigen and Antibodies, Fourth Generation, with Reflexes (06/04/2025 8:21 AM EST) HIV AB/AG Nonreactive Nonreactive [facility] Comment:HIV-1 p24 Ag and/or HIV-1/HIV-2 Ab not detected.A test result that is nonreactive does not exclude thepossibility of exposure to or infection with HIV-1 and/orHIV-2. Nonreactive results in this assay for individualswith prior exposure to HIV-1 and/or HIV-2 may be due toantigen and antibody levels that are below the limit ofdetection of this assay.The [employer] HIV Ag/Ab Combo assay result andsupplemental assay results should be interpreted inconjunction with the patient's clinical presentation,history and other laboratory results. If the results areinconsistent with clinical evidence, additional testing issuggested to confirm the result. 06/04/2025 8:21 AM EST 06/04/2025 11:03 AM EST us Ruth Barrios MD LAB BLOOD ORDERABLES Final Resul t Performing Organization Address [facility] Co de Phone Number [facility] [address] [place] [phone] * Hepatitis B Surface Antibody, Qualitative (06/04/2025 8:21 AM EST) ~Hepatitis B Surface Antibody REACTIVE Nonreactive [facility] Comment:REACTIVE: > 11.99 mI U/mL 06/04/2025 8:21 AM EST 06/04/2025 11:03 AM EST us Ruth Barrios MD LAB BLOOD ORDERABLES Final Resul t Performing Organization Address [facility] Co de Phone Number [facility] [address] [place] [phone] * Hemoglobin A1c (06/04/2025 8:21 AM EST) Hemoglobin A1c 5.4 <6.0 % [facility] Comment:Hemoglobin A1C Refer ence Range Adults: 4.8 - 6.0 % Non diabetic: < 6.0 % Goal: < 7.0 %Additional Action Suggested: > 8.0 %Note: Hemoglobin A1c results are invalid for patients with abnormal amounts of HbF. Blood transfusions may impact the HbA1c concentration in the patient sample. Estimated Average Glucose 108 mg/dL [facility] Comment:eAG = Estimated ave rage glucose which is %A1C expressed asaverage glucose, using the formula of the V8G-ZmswzauRtakesz Glucose study (ADAG), Diabetes Care, Vol.31,#8,2007 Blood Venous blood specimen / Unknown 06/04/2025 8:21 AM EST 06/04/2025 11:03 AM EST us Gerry Salter MD LAB BLOOD ORDERABLES Final Resul t Performing Organization Address [facility] Co de Phone Number [facility] [address] [place] [phone] * Hepatic Function Panel (06/04/2025 8:21 AM EST) Bilirubin, Total 0.4 0.0 - 1.0 mg/dL [facility] Bilirubin, Direct 0.1 0.0 - 0.5 mg/dL [facility] Aspartate Amino Transferase 36 5 - 37 U/L [facility] Alanine Aminotransferase 28 0 - 40 U/L [facility] Total Protein 7.9 6.5 - 8.0 g/dL [facility] Albumin Level 4.6 3.5 - 5.0 g/dL [facility] Alkaline Phosphatase 70 39 - 117 U/L [facility] 06/04/2025 8:21 AM EST 06/04/2025 11:03 AM EST us Ruth Barrios MD LAB BLOOD ORDERABLES Final Resul t Performing Organization Address [facility] Co de Phone Number [facility] [address] [place] [phone] * (ABNORMAL) Comprehensive Metabolic Panel (05/07/2025 8:55 AM EDT) Pathologist [facility] Sodium 141 135 - 145 mmol/L [facility] Potassium 4.4 3.3 - 5.1 mmol/L [facility] Comment:Slight Hemolysis.Int erpret result with caution. Chloride 104 96 - 108 mmol/L [facility] Carbon Dioxide 31(H) 22 - 29 mmol/L [facility] Anion Gap 10(L) 12 - 20 [facility] Urea Nitrogen (BUN) 19(H) 9 - 16 mg/dL [facility] Creatinine, Serum 1.00 0.5 - 1.4 mg/dL [facility] Estimated Glomerular Filt Rate >60 [facility] Comment:Chronic Kidney Disea se: Estimated GFR < 60 mL/min/1.11w2Gkaekh Kidney Disease: Estimated GFR < 15 mL/min/1.73m2 Glucose 167(H) 60 - 115 mg/dL [facility] Calcium 9.3 8.4 - 10.2 mg/dL [facility] Bilirubin, Total 0.3 0.0 - 1.0 mg/dL [facility] Aspartate Amino Transferase 53(H) 5 - 37 U/L [facility] Comment:Slight Hemolysis.Int erpret result with caution. Alanine Aminotransferase 37 0 - 40 U/L [facility] Total Protein 8.2(H) 6.5 - 8.0 g/dL [facility] Albumin Level 4.8 3.5 - 5.0 g/dL [facility] Alkaline Phosphatase 72 39 - 117 U/L [facility] 05/07/2025 8:55 AM EDT 05/07/2025 11:37 AM EDT us Gerry Name LAB BLOOD ORDERABLES Final Resul t [facility] [address] [place] [phone] * (ABNORMAL) Lipid Panel, Standard (08/31/2022 11:38 AM EST) Cholesterol, Total 181 <200 mg/dL [email or web address] [place] [facility] HDL Cholesterol 39(L) > OR = 40 mg/dL [facility] [place] [facility] Triglycerides 108 <150 mg/dL [facility] [place] [facility] LDL Cholesterol 120(H) mg/dL (calc) [facility] [place] [facility] Comment: Reference range: <100 Desirable range <100 mg/dL for primary prevention; <70 mg/dL for patients with CHD or diabetic patients with > or = 2 CHD risk factors. LDL-C is now calculated using the Antonino calculation, which is a validated novel method providing better accuracy than the Friedewald equation in the estimation of LDL-C. Braeden SCHAFER et al. SAPPHIRE. 2013;310(19): 6111-7343 (http://education.Promptu Systems/faq/NKT394) Chol/HDLC Ratio 4.6 <5.0 (calc) [facility] [place] [facility] Non-HDL Cholesterol 142(H) <130 mg/dL (calc) [facility] Comment: For patients with diabetes plus 1 major ASCVD risk factor, treating to a non-HDL-C goal of <100 mg/dL (LDL-C of <70 mg/dL) is considered a therapeutic option. Blood Venous blood specimen / Unknown 08/31/2022 11:38 AM EST 08/31/2022 11:39 AM EST Narrative [facility] - 09/01/2022 1:33 AM EST FASTING:YES FASTING: YES Gerry Salter MD LAB BLOOD ORDERABLES Final Resul t [facility] [address] [facility], [place] [address] [email or web address] [place] [facility] [address] [facility], ([address]) [place] [address] from Last 3 Months or Most Recently Relevant to Health Maintenance Insurance [employer] Care Teams Travel Writer Relationship Specialty Start Date End Date Name, MD Gerry [address] [place] [address] PCP - General Family Medicine 02/16/17
== END 2025-06-30 14:49 | disposition home or self-care (01) ==
LOC: HO.HOS 13:50
PROVIDERS: PCP Internal Medicine Geriatric Medicine; Visit Provider Physician Assistant
DX: M17.11 Unilateral primary osteoarthritis, right knee (principal)
CPT/HCPCS: 20610

== ENCOUNTER → 2025-06-30 13:52 | Outpatient (BNV) | payer MEDICAID, SELFPAY | PROVIDERS: Visit Provider Radiology Diagnostic Ultrasound | DX: M17.11 Unilateral primary osteoarthritis, right knee (principal); M25.461 Effusion, right knee | CPT/HCPCS: 73562 ==